=== PATIENT | male | born 1970 | race Caucasian/White ===

== ENCOUNTER → 2018-02-01 02:57 | Outpatient (CLI) | payer OTHER, SELFPAY ==
[2018-02-01 08:23] LABS: Cholesterol 155 mg/dL (50-200); HDL Cholesterol 39 mg/dL (40-60); LDL CHOLESTEROL 105 mg/dL (<100); Triglyceride 83 mg/dL (30-150)
== END ==
PROVIDERS: PCP Nurse Practitioner Family; Visit Provider Student in an Organized Health Care Education/Training Program
DX: Z13.220 Encounter for screening for lipoid disorders (principal)
CPT/HCPCS: 36415; 80061; 83721

== ENCOUNTER 2018-08-16 11:03 | Outpatient (CLI) | payer OTHER, SELFPAY | END 2018-08-16 11:23 | PROVIDERS: PCP Family Medicine; Visit Provider Family Medicine | DX: R00.2 Palpitations (principal); R00.1 Bradycardia, unspecified; I47.1 Supraventricular tachycardia | CPT/HCPCS: 93225 ==

== ENCOUNTER 2018-08-19 09:21 | Outpatient (CLI) | payer OTHER, SELFPAY ==
--- NOTE | 2018-08-20 20:01 | HOLTER_ITS ---
HOLTER REPORT Date of dictation: August 20, 2018 Study Indication: Palpitations. Requesting Provider: Mojgan Thompson M.D. Findings: The patient was monitored for 2 days. The baseline rhythm was sinus rhythm. Average heart rate 52 bpm, range 41-103 bpm. There was rare ectopy, 0.4% PVC's and less than 0.1% PAC's. There was no VT. There were two atrial runs, longest 17 beats, fastest 146 bpm. There was nocturnal bradycardia. There were no pauses greater than 3 seconds. There was no higher degree heart block. There were six patient events; none of these events correlated with arrhythmias. Final Interpretation: Minor arrhythmias, asymptomatic.
== END 2018-08-19 09:41 ==
PROVIDERS: PCP Family Medicine; Visit Provider Family Medicine
DX: R00.2 Palpitations (principal); R00.1 Bradycardia, unspecified; I47.1 Supraventricular tachycardia
CPT/HCPCS: 93226

== ENCOUNTER 2018-09-04 00:41 | Outpatient (CLI) | payer OTHER, SELFPAY ==
--- NOTE | 2018-09-04 08:30 | ETT_ITS ---
*[facility]* *[facility]* [address] [place] [address] Stress Electrocardiography Ricky protocol Date of study: 09/04/2018 *PATIENT PRESENTATION* Height: 185.4cm (73in) Blood Pressure: Weight: 102.3kg (225lb) BSA: 2.32m^2 Referring physician: Mojgan Thomposn Ordering physician: Mojgan Thompson Impressions: Normal study after maximal exercise. Summary: 1. Stress ECG conclusions: The stress ECG is negative. Rob treadmill score: 13. This score predicts a low risk of cardiac events. 2. Stress: The target heart rate was achieved. The heart rate response to stress is normal. There is a normal resting blood pressure with an appropriate response to stress. The patient experienced no chest pain during stress. Exercise capacity is above normal for age. 3. Treadmill exercise testing was performed using the Ricky protocol. The patient exercised for 13 min 15 sec, to protocol stage 4, to a maximal work rate of 14.3mets. Exercise was terminated due to fatigue. Indication: R00.2, Appropriate Use Criteria: A (Appropriate). History: REASON FOR TESTING: PATIENT HAS HAD PALPITATIONS FOR YEARS WHICH HAVE INCREASED IN FREQUENCY OVER THE LAST MONTH. PATIENT REPORTS OCCASIONAL PALPITATIONS IN THE MORNING THAT GETS WORSE AFTER LUNCH AND AFTER DRINKING CAFFINATED BEVERAGES. HE STATES THESE EPISODES CAN LAST UP TO 3 HOURS AT A TIME. HE DENIES CHEST PAIN/PALPITATIONS UPON ARRIVAL FOR TESTING THIS MORNING. SIGNIFICANT PAST MEDICAL HISTORY: HIS BROTHER HAD TRIPLE BYPASS AT AGE 35. ANXIETY. SMOKING STATUS: QUIT 2006. SMOKED FOR 25 YEARS, 1 PPD. EXERCISE ROUTINE: DAILY ADL'S AND MAITNANCE AT WORK. Risk factors: Family history of coronary artery disease. Hypertension. Dyslipidemia. Cholesterol: 155mg/dl. HDL: 39mg/dl. LDL: 105mg/dl. Triglycerides: 83mg/dl. ALLERGIES: NO KNOWN ALLERGIES. MEDICATIONS: ASPIRIN 81 MG DAILY, CLONAZEPAM 0.5 MG BID, FLUOXETINE 60 MG DAILY, OMEPRAZOLE 20 MG DAILY, TAMULOSIN 0.4 MG DAILY, HYDROCHLOROTHIAZIDE DAILY(DOSE UNKNOWN), LISINOPRIL 20 MG DAILY, PREVASTATIN 40 DAILY. Protocol: Ricky protocol. Baseline ECG: SINUS BRADYCARDIA. HR 53 BPM. Sinus bradycardia. Stress protocol: + +---+ + !Stage !HR !BP (mmHg) ! + +---+ + !Baseline supine !53 !118/80 (93) ! + +---+ + !Baseline standing !64 !120/80 (93) ! + +---+ + !Stage I; 1.7mph, 10degrees; 3 min !83 !138/80 (99) ! + +---+ + !Stage II; 2.5mph, 12degrees; 3 min !98 !150/80 (103)! + +---+ + !Stage III; 3.4mph, 14degrees; 3 min!125!160/80 (107)! + +---+ + !Stage IV; 4.2mph, 16degrees; 3 min !150!170/80 (110)! + +---+ + !Peak stress !162! ! + +---+ + !Recovery; 1 min !143!128/60 (83) ! + +---+ + !Recovery; 3 min !83 !130/70 (90) ! + +---+ + !Recovery; 6 min !76 !112/66 (81) ! + +---+ + * Stress results: STRESS TEST ENDED IN 13 MINUTES 15 SECONDS DUE TO FATIGUE. NORMAL HEART RATE AND BLOOD PRESSURE RESPONSE TO EXERCISE. MAX HEART RATE: 162. 94 % OF TARGET HEART RATE ACHIEVED. MET'S: 14.33. OCCASIONAL PVC'S NOTED IN RECOVERY PHASE. NO SIGNIFICANT ST SEGMENT CHANGES. FUNCTIONAL CAPACITY: ABOVE AVERAGE. Maximal heart rate during stress was 162bpm (95% of maximal predicted heart rate). The maximal predicted heart rate was 171bpm. The target heart rate was achieved. The heart rate response to stress is normal. There is a normal resting blood pressure with an appropriate response to stress. The rate-pressure product for the peak heart rate and blood pressure was 24066ae Hg/min. The patient experienced no chest pain during stress. Exercise capacity is above normal for age. Stress ECG: The stress ECG is negative. Rob treadmill score: 13. This score predicts a low risk of cardiac events. Study data: Fuad Bennett MD supervised and was readily available during the procedure. This study was interpreted by [facility]. Study status: Routine. Consent: The risks, benefits, and alternatives to the procedure were explained to the patient and informed consent was obtained. Procedure: Initial setup. A baseline ECG was recorded. Surface ECG leads and manual cuff blood pressure measurements were monitored. Heart sounds: Normal. Lung sounds: Normal. Treadmill exercise testing was performed using the Ricky protocol. The patient exercised for 13 min 15 sec, to protocol stage 4, to a maximal work rate of 14.3mets. Exercise was terminated due to fatigue. Study completion: The patient tolerated the procedure well and was discharged from the lab. Discharge: The patient left the laboratory in stable condition. Birthdate: Patient birthdate: 1970. Sex: Gender: male. Study date: Study date: 09/04/2018. Study time: 00:01 AM. Signature Documentation: The Stress ECG portion of this study was interpreted by Fuad Bennett MD. Electronically signed by Fuad Bennett 09/04/2018 10:08
== END 2018-09-04 01:01 ==
PROVIDERS: PCP Family Medicine; Visit Provider Family Medicine
DX: R00.2 Palpitations (principal); I10 Essential (primary) hypertension; E78.5 Hyperlipidemia, unspecified; Z87.891 Personal history of nicotine dependence; Z82.49 Family history of ischemic heart disease and other diseases of the circulatory system
CPT/HCPCS: 93017

== ENCOUNTER 2018-11-14 16:22 | Outpatient (REF) | payer OTHER, SELFPAY ==
[2018-11-14 18:37] LABS: Anion Gap 10.4 mmol/L (3-11); BUN 23 mg/dL (7-18); CO2 28.6 mmol/L (21.0-32.0); CREATININE 0.86 mg/dL (0.70-1.30); Calcium 9.4 mg/dL (8.5-10.1); Chloride 102 mmol/L (98-107); Glucose 87 mg/dL (70-100); Potassium 3.5 mmol/L (3.5-5.1); Sodium 141 mmol/L (136-145)
== END 2018-11-14 16:42 ==
LOC: NCHCN 16:22
PROVIDERS: PCP Family Medicine; Visit Provider Family Medicine
DX: I10 Essential (primary) hypertension (principal)
CPT/HCPCS: 80048

== ENCOUNTER 2019-02-12 13:24 | Outpatient (CLI) | payer OTHER, SELFPAY ==
--- NOTE | 2019-02-12 13:40 | DI.RAD_ITS ---
SYMPTOMS/DIAGNOSIS: KNEE PAIN, M25.562 LEFT KNEE: The joint spaces are well maintained. There is minimal spurring at the medial femorotibial joint. No joint effusion is seen. IMPRESSION: Minimal degenerative changes.
== END 2019-02-12 13:44 ==
PROVIDERS: PCP Family Medicine; Visit Provider Family Medicine
DX: M25.562 Pain in left knee (principal); M17.12 Unilateral primary osteoarthritis, left knee
CPT/HCPCS: 73562

== ENCOUNTER 2019-11-21 16:32 | Outpatient (REF) | payer OTHER, SELFPAY ==
[2019-11-21 19:12] LABS: HCT 42.9 % (40.0-50.0); HGB 14.3 g/dL (13.5-17.5); Mean Corp. HGB Concentration 33.3 g/dL (32.0-36.0); Mean Corpuscular Hemoglobin 28.8 pg (27.0-33.0); Mean Corpuscular Volume 86.3 fL (80-95); Mean Platelet Volume 12.5 fL (8.0-11.0); Platelet Count 220 x1000/uL (130-400); RBC 4.97 m/cumm (4.50-6.00); RBC Distribution Width 14.7 % (11.8-14.1); White Blood Cell Count 6.23 k/cumm (4.4-10.8)
[2019-11-21 19:17] LABS: Anion Gap 8.8 mmol/L (3-11); BUN 20 mg/dL (7-18); CO2 29.2 mmol/L (21.0-32.0); CREATININE 1.05 mg/dL (0.70-1.30); Calcium 9.1 mg/dL (8.5-10.1); Calculated LDL 124 mg/dL (<100); Chloride 105 mmol/L (98-107); Cholesterol 186 mg/dL (<200); Glucose 87 mg/dL (74-106); HDL Cholesterol 45 mg/dL (40-60); Potassium 3.9 mmol/L (3.5-5.1); Sodium 143 mmol/L (136-145); Triglyceride 88 mg/dL (<150)
[2019-11-21 19:36] LABS: Hemoglobin A1C 5.7 % (3.8-5.6)
== END 2019-11-21 16:52 ==
LOC: NCHCN 16:32
PROVIDERS: PCP Family Medicine; Visit Provider Family Medicine
DX: I10 Essential (primary) hypertension (principal); E78.5 Hyperlipidemia, unspecified
CPT/HCPCS: 80048; 80061; 85027; 83036

== ENCOUNTER 2020-01-23 09:37 | Day surgery (SDC) | payer OTHER, SELFPAY ==
[2020-01-23 10:03] VITALS: BP 129/89; PULSE 56; RESP 16; TEMP 36.4; O2SAT 96
[2020-01-23] MEDS: Lactated Ringers 1,000 ML 80 ML IV (10:23)
--- NOTE | 2020-01-23 11:11 | W.PM.DSUDISC ---
Discharge Plan Disposition Patient Disposition: HOME Condition: Good Discharge Details Reason For Visit: Colonoscopy Attending Provider: Gracie Talamantes Primary Care Provider: Mojgan Thompson Home Meds and New Rx's Prescriptions: Continued pravastatin 40 MG tablet 80 mg PO DAILY Qty: 180 RF: 3 lisinopril 10 MG tablet 10 mg PO DAILY Qty: 30 RF: 11 hydrochlorothiazide 12.5 MG capsule 12.5 mg PO DAILY Qty: 30 RF: 11 omeprazole [Prilosec] 20 MG capsule,delayed release(DR/EC) 20 mg PO DAILY RF: 0 clonazepam 0.5 MG tablet 0.5 mg PO BID RF: 0 fluoxetine [Prozac] 10 MG capsule 10 mg PO DAILY RF: 0 tamsulosin [Flomax] 0.4 MG capsule 0.4 mg PO DAILY RF: 0 aspirin [Aspir-81] 81 MG tablet,delayed release (DR/EC) 81 mg PO DAILY RF: 0 Discharge Instructions Additional Instructions: Findings: Two small polyps were removed. My office will contact you with biopsy results. Follow up: If the biopsy shows adenomatous polyps, you will need a colonoscopy in 5 years. Please call if you develop: fevers >101.5 Nausea or Vomiting Abdominal pain that is not transient DAY SURGERY UNIT POST COLONOSCOPY INSTRUCTIONS 1. Because there will be medication in your system for the next 24 hours, you may feel a little sleepy. Your coordination will be affected. Therefore: a. Do not drive or operate dangerous equipment for 24 hours. b. Do not drink alcohol beverages for 24 hours (not even beer). c. Plan to go home and rest for the day. 2. Generally there are no restrictions on your activity after a day or so has gone by, but you may feel a bit fatigued for a few days. 3 After you arrive home you may have a light meal and return to a normal diet as you can tolerate it without feeling sick to your stomach. 4. After surgery, you may feel pain or discomfort. This should be only transient, but if it persists please contact your doctor. 5. If there are any questions regarding the findings of your procedure, please feel free to contact your doctor. 6. If you are unable to contact your doctor with a problem, contact the hospital at [phone]. 7. Continue all your regular medications unless directed otherwise. I understand the above instructions and have no questions. Signature of Patient or Responsible Adult Escort Date/Time Name of Responsible Adult Escort Signature of Nurse Date/Time Activity:: Activity as Tolerated Diet:: As Tolerated Discharge Orders Discharge Orders: Discharge Order (Routine); Ordered 01/23/20 Ordered By: Gracie Talamantes DS: Diagnosis Discharge Diagnosis (1) Colon polyps: Status: Acute (2) Diverticulosis: Status: Acute
--- NOTE | 2020-01-23 11:14 | W.COLOREPORT ---
Date of service: 01/23/20 Time of Service: 12:02 Colonoscopy Report Date of procedure: 01/23/20 Pre-op diagnosis general: Screening Post-op diagnosis procedure note: other (Colon polyps, Diverticulosis) Procedure: Colonoscopy with cold forceps polypectomy Surgeon: Gracie Talamantes Anesthesia proc note operative: MAC Indications: This 49 year old man presents for his first screening colonoscopy. No symptoms or FH colon cancer. Procedure Description: The patient was placed in the left Yao position. Propofol was titrated to sedation. Digital rectal examination revealed no abnormalities. The scope was advanced to the cecum without difficulty. The ileocecal valve and appendiceal orifice were clearly identified. A few diverticulosis pockets were noted near the appendiceal orifice and were also scattered throughout the colon. The prep was good. The scope was slowly withdrawn over the course of greater than 6 minutes with no abnormalities seen in the ascending, transverse, descending colon. A diminuitive polyp was removed with the cold forceps from the sigmoid colon. It is possible this is an inverted diverticulum. A diminuitive polyp was also removed from the rectum with the cold forceps. It was otherwise normal including on retroflexed view. The patient tolerated the procedure well and was stable to recovery. Plan for routine screening colonoscopy in 5 years if the polyp is adenomatous.
--- NOTE | 2020-01-23 11:50 | BOWEL_PTH ---
PATIENT: Harris Quiroz LOC: [facility] U#:[id number] AGE/SX: 49/M ROOM: RE01/23/[address]: Gracie Talamantes MD : 1970 BED: DIS: 01/23/2020 SPEC #: [id number] RECD: 01/23/20 12:51 STATUS: WAQAS REQ #: [id number] EMMANUEL: 01/23/20 11:[address]: Gracie Talamantes DEPT: Surgical Specimen RECD BY: Krystal Silva ENTERED: 01/23/20 12:53 SP TYPE: Bowel OTHR DR: Mojgan Thompson Tissues: 1 - BIOPSY BOWEL 2 - BIOPSY BOWEL Procedures: GROSS AND MICRO LEVEL 4 Comments: [id number]
[2020-01-23 12:20] VITALS: BP 113/57; PULSE 49; RESP 16; TEMP 36.6; O2SAT 96
[2020-01-23 12:29] VITALS: BP 116/74; PULSE 49; RESP 16; TEMP 36.4; O2SAT 96
== END 2020-01-23 12:48 | disposition home or self-care (01) ==
PROVIDERS: PCP Family Medicine; Visit Provider Surgery
PROC: 0DJD8ZZ Inspection of Lower Intestinal Tract, Via Natural or Artificial Opening Endoscopic (ICD-10-PCS; CPT 45378; principal; 2020-01-23 11:15)
DX: Z12.11 Encounter for screening for malignant neoplasm of colon (principal); K63.5 Polyp of colon; K62.1 Rectal polyp; K57.30 Diverticulosis of large intestine without perforation or abscess without bleeding; K21.9 Gastro-esophageal reflux disease without esophagitis
CPT/HCPCS: 45380; 88305

== ENCOUNTER 2020-05-10 21:22 | Outpatient (REF) | payer OTHER, SELFPAY ==
[2020-05-12 05:28] LABS: Patient Race White; SARS-CoV-2 RNA Undetected (Undetected); SARS-CoV-2 Specimen Source Nasal
== END 2020-05-10 21:42 ==
LOC: NCHCN 21:22
PROVIDERS: PCP Family Medicine; Visit Provider Nurse Practitioner Family
DX: Z20.828 Contact with and (suspected) exposure to other viral communicable diseases (principal)
CPT/HCPCS: U0003

== ENCOUNTER 2020-09-10 09:32 | Outpatient (CLI) | payer OTHER, SELFPAY ==
--- NOTE | 2020-09-10 11:10 | DI.RAD_ITS ---
EXAM: XR ELBOW RT COMPLETE CLINICAL HISTORY: ELBOW JOINT PAIN RT M25.521 TECHNIQUE: COMPARISON: No exams were available for comparison FINDINGS: Three views were obtained. There is no evidence of an elbow joint effusion or hemarthrosis. Bones a ppear intact, a couple of tiny flecks of calcific material are projected over the central portion of the joint on the AP views. IMPRESSION: Essentially negative examination of the elbow. RADIATION DOSE DELIVERED: Total DLP
== END 2020-09-10 09:52 ==
PROVIDERS: PCP Family Medicine; Visit Provider Family Medicine
DX: M25.521 Pain in right elbow (principal)
CPT/HCPCS: 73080

== ENCOUNTER 2020-11-22 19:04 | Outpatient (REF) | payer OTHER, SELFPAY ==
[2020-11-22 19:45] LABS: ALT 57 U/L (16-63); AST 28 U/L (15-37); Alkaline Phosphatase 81 U/L (46-116); Anion Gap 8.6 mmol/L (3-11); BUN 22 mg/dL (7-18); Bilirubin, Total 0.2 mg/dL (0.2-1.0); CO2 29.4 mmol/L (21.0-32.0); CREATININE 0.9 mg/dL (0.70-1.30); Calcium 8.9 mg/dL (8.5-10.1); Chloride 104 mmol/L (98-107); Glucose 101 mg/dL (74-106); Potassium 3.5 mmol/L (3.5-5.1); Sodium 142 mmol/L (136-145); Total Protein 6.9 g/dL (6.4-8.2)
[2020-11-22 20:27] LABS: Hemoglobin A1C 5.6 % (<5.7)
== END 2020-11-22 19:05 | disposition home or self-care (01) ==
LOC: NCHCN 19:04
PROVIDERS: PCP Family Medicine; Visit Provider Family Medicine
DX: I10 Essential (primary) hypertension (principal); R73.03 Prediabetes
CPT/HCPCS: 80053; 83036

== ENCOUNTER 2020-12-16 14:47 | Outpatient (REF) | payer OTHER, SELFPAY ==
[2020-12-16 17:47] LABS: PSA, Screening 0.5 ng/mL (0.0-3.5)
== END 2020-12-16 14:48 | disposition home or self-care (01) ==
LOC: LBN 14:47
PROVIDERS: PCP Family Medicine; Visit Provider Urology
DX: Z12.5 Encounter for screening for malignant neoplasm of prostate (principal); Z80.42 Family history of malignant neoplasm of prostate
CPT/HCPCS: 84153

== ENCOUNTER 2021-12-28 18:06 | Outpatient (REF) | payer OTHER, SELFPAY ==
[2021-12-28 19:08] LABS: Anion Gap 10.2 mmol/L (3-11); BUN 12 mg/dL (7-18); CO2 28.8 mmol/L (21.0-32.0); Calcium 8.9 mg/dL (8.5-10.1); Calculated LDL 121 mg/dL (<100); Chloride 100 mmol/L (98-107); Cholesterol 177 mg/dL (<200); Glucose 90 mg/dL (74-106); HDL Cholesterol 40 mg/dL (40-60); Potassium 3.3 mmol/L (3.5-5.1); Sodium 139 mmol/L (136-145); Triglyceride 84 mg/dL (<150)
[2021-12-28 19:53] LABS: Hemoglobin A1C 5.8 % (<5.7)
== END 2021-12-28 18:07 | disposition home or self-care (01) ==
LOC: NCHCN 18:06
PROVIDERS: PCP Family Medicine; Visit Provider Family Medicine
DX: I10 Essential (primary) hypertension (principal); E78.5 Hyperlipidemia, unspecified; R73.03 Prediabetes
CPT/HCPCS: 80048; 80061; 83036

== ENCOUNTER 2023-01-12 15:58 | Outpatient (REF) | payer OTHER, SELFPAY ==
[2023-01-12 16:53] LABS: Anion Gap 5.5 mmol/L (3-11); BUN 15 mg/dL (7-18); CO2 31.5 mmol/L (21.0-32.0); CREATININE 1.1 mg/dL (0.70-1.30); Calcium 9.2 mg/dL (8.5-10.1); Chloride 102 mmol/L (98-107); Estimated GFR 80.27 (mL/min/1.73m2); Glucose 96 mg/dL (74-106); Potassium 3.8 mmol/L (3.5-5.1); Sodium 139 mmol/L (136-145)
[2023-01-12 17:56] LABS: Hemoglobin A1C 5.7 % (<5.7)
== END 2023-01-12 15:59 | disposition home or self-care (01) ==
LOC: NCHCN 15:58
PROVIDERS: PCP Family Medicine; Visit Provider Family Medicine
DX: I10 Essential (primary) hypertension (principal); R73.03 Prediabetes
CPT/HCPCS: 80048; 83036

== ENCOUNTER 2023-09-24 17:37 | Outpatient (CLI) | payer OTHER, SELFPAY ==
[2023-09-25 08:19] LABS: PSA, Screening 0.5 ng/mL (<=3.5)
== END 2023-09-24 17:38 | disposition home or self-care (01) ==
LOC: LBO 17:37
PROVIDERS: PCP Family Medicine; Visit Provider Nurse Practitioner Gerontology
DX: R39.89 Other symptoms and signs involving the genitourinary system (principal); Z12.5 Encounter for screening for malignant neoplasm of prostate
CPT/HCPCS: 36415; 84153

== ENCOUNTER 2024-03-20 13:07 | Outpatient (CLI) | payer OTHER, SELFPAY ==
[2024-03-20 11:15] LABS: Hemoglobin A1C 5.5 % (<5.7)
[2024-03-20 11:19] LABS: ALT 47 U/L (16-63); AST 31 U/L (15-37); Albumin 4.1 g/dL (3.4-5.0); Alkaline Phosphatase 84 U/L (46-116); Anion Gap 6.1 mmol/L (3-11); BUN 15 mg/dL (7-18); Bilirubin, Total 0.68 mg/dL (0.2-1.0); CO2 30.9 mmol/L (21.0-32.0); CREATININE 0.9 mg/dL (0.70-1.30); Calcium 9.2 mg/dL (8.5-10.1); Calculated LDL 121 mg/dL (<100); Chloride 105 mmol/L (98-107); Cholesterol 190 mg/dL (<200); Estimated GFR 101.49 (mL/min/1.73m2); Glucose 99 mg/dL (74-106); HDL Cholesterol 44 mg/dL (40-60); Potassium 3.8 mmol/L (3.5-5.1); Sodium 142 mmol/L (136-145); Total Protein 7.3 g/dL (6.4-8.2); Triglyceride 125 mg/dL (<150)
== END 2024-03-20 13:08 | disposition home or self-care (01) ==
LOC: LBO 13:07
PROVIDERS: PCP Family Medicine; Visit Provider Family Medicine
DX: I10 Essential (primary) hypertension (principal); E78.5 Hyperlipidemia, unspecified
CPT/HCPCS: 36415; 80053; 80061; 83036

== ENCOUNTER 2024-06-20 19:07 | Outpatient (REF) | payer OTHER, SELFPAY ==
--- OUTSIDE RECORDS SUMMARY | 2024-06-20 19:12 | XMS_ITS | Encounter Summary ---
Author Organization [facility] Address [address] [place] [address] Care Team Providers Care Contractor General Building Name Role Phone Jm, Kartik Ziegler DO Primary Care Provider [phone]- [phone] Encounter Details Date Type Department Care Team (Late st Contact Info) Description 06/17/2003 Results Only [facility] [address] [place] [address] Angela Humphries, CRIMINAL INTELLIGENCE SPECIALIST [address] [place] [id number] Social History Tobacco Use Types Packs/Day Years Used Date Smoking Tobacco: Never Assessed Sex and Gender Information Value Date Recorded Sex Assigned at Not on file Legal Sex Male 18:22 EST Gender Identity Not on file Sexual Orientation Not on file documented as of this encounter Plan of Treatment Not on file documented as of this encounter Procedures Procedure Name Priority Date/Time Associated Diagnosis Comments SURGICAL PATHOLOGY Routine 06/17/2003 0:00 EST documented in this encounter Results * SURGICAL PATHOLOGY (06/17/2003 0:00 EST) Pathology Report: SURGICAL PATHOLOGY REPORT Reports generated via electronic interface contain original data; however they are lacking the format of the original report. Caution should be taken when reading/interpreti ng unformatted reports. Name: ? STEPHANIE QUIROZWN Chayo ? Accession #: ? [id number] ? : ? 1970 (Age: 33) ??M ? Collect Date: ? 06/17/2003 ? Location: ? [facility] ? Receive Date: ? 06/18/2003 ? Provider: ANGELA HUMPHRIES NP Copy to: KARTIK ONEAL DO ? Final Pathologic Diagnosis: ? Skin of neck, right, shave biopsy: - Melanocytic nevus, compound type. Document reviewed and electronically signed by: Charlie Rodriguez MD Report ??Date: 06/19/2003 17:33 By the signature above, the attending physician certifies that he/she has personally conducted a gross and/or microscopic examination of the described specimens and rendered or confirmed the above diagnosis. Specimen(s) Received: ? Skin tag R side neck Clinical History: ? Not listed Gross Description: ? Received in formalin labelled Locklin and skin tag R side neck is a wrinkled cordero polyp measuring 0.4 x 0.3 x 0.3 cm. ??The resection stalk is black inked. ??The specimen is bisected and submitted entirely as one cassette. ?? (Dr. Calabrese)/brian End of Report SEEMA FRANCIS 06/17/2003 06/18/2003 15: 21 EST us Angela Humphries NP PATHOLOGY ORDERABLES Final R esult SEEMA FRANCIS [address] [place] [address] documented in this encounter Visit Diagnoses Not on filedocumented in this encounter Care Teams Contractor General Building Relationship Specialty Start Date End Date Kartik Oneal DO [address] [place] [address] [place] [address] PCP - General 06/21/09 01/21/20 documented as of this encounter
--- OUTSIDE RECORDS SUMMARY | 2024-06-20 19:12 | XMS_ITS | Encounter Summary ---
Author Organization [facility] Address [facility] [place] [address] Care Team Providers Care Ergonomic Specialist Name Role Phone Clifton Russell APRN Primary Care Provider [phone]- [phone] Reason for Visit * Reason Comments Follow-up canthoplasty for , finalize surgery Encounter Details Date Type Department Care Team (Late st Contact Info) Description 06/03/2014 2:00 PM EST [place] [address] Jared Arboleda MD [facility] [place] [address] Ectropion of eyelid, right; Superficial trauma of eyelid, right, subsequent encounter Discharge Disposition: Home Social History Tobacco Use Types Packs/Day Years Used Date Smoking Tobacco: Never Smokeless Tobacco: Current Chew Alcohol Use Standard Drinks/Week Comments Yes 0 (1 standard drink = 0.6 oz pure alcohol) Notes infrequent but will drink to excess when he does Sex and Gender Information Value Date Recorded Sex Assigned at Not on file Gender Identity Not on file Sexual Orientation Not on file documented as of this encounter Last Filed Vital Signs Vital Sign Reading Time Taken Comments Blood Pressure 136/74 06/03/2014 1:49 PM EST Pulse 61 06/03/2014 1:49 PM EST Temperature - - Respiratory Rate - - Oxygen Saturation - - Inhaled Oxygen Concentration - - Weight 103.3 kg (227 lb 12.8 oz) 06/03/2014 1:49 PM EST Height 185.4 cm (6' 1) 06/03/2014 1:49 PM EST Body Mass Index 30.05 06/03/2014 1:49 PM EST documented in this encounter Progress Notes * Jared Arboleda MD - 06/03/2014 1:42 PM EST Plastic Surgery Follow Up Note Jared Arboleda MD PCP: CLIFTON RUSSELL APRN CC: Right lower lid ectropion. HPI: Harris Quiroz returns in follow up for right lower lid ectropion. He is scheduled for a canthoplasty on 06/09/14. He reports that he has continued massaging the area as directed since his lastvisit. He also reports that the suture that was placed last week popped out since that visit. Examination: There were no vitals taken for this visit. Constitutional: No acute distress HEENT: Normocephalic, extra ocular movement intact Still incompletley closing the right eye No injection of conjunctiva Lower Lid is sitting 4 mm away from globe on the right Impression: Harrisjackelin Quiroz 43 y.o. male patient s/p right lower lid laceration repair with ectropion of right lower lid. Based on the physical examination, I advised him that I need to proceed with the planned canthoplasty to correct the lid position to avoid dry eye syndrome. I again discussed potential risks and complications which include but are not limited to: pain, bleeding, infection, scarring, asymmetry, hematoma, seroma, ectropion, entropion, permanent or temporary numbness, damage tothe eye and other structures, poor cosmetic outcome, failure of procedure and the possible need forrevision. He agrees and wishes to proceed. In the meantime I advised him to continue massaging the area. Photos taken today with informed signed consent Plan: 1. Proceed with planned procedure IPerri, am acting as scribe for Dr Arboleda. All work documented was performed by Dr Arboleda. ???I performed the above scribed service and agree with the accuracy of the note?? Jared Arboleda MD documented in this encounter Plan of Treatment Not on file documented as of this encounter Visit Diagnoses Diagnosis Ectropion of eyelid, right Superficial trauma of eyelid, right, subsequent encounter documented in this encounter Care Teams Ergonomic Specialist Relationship Specialty Start Date End Date Clifton Russell APRN PCP - General 05/03/10 08/06/16 documented as of this encounter
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
--- OUTSIDE RECORDS SUMMARY | 2024-06-20 19:12 | XMS_ITS | Encounter Summary ---
Author Organization [facility] Address [address] [place] [address] Care Team Providers Care Qa Intern Name Role Phone Mojgan Thompson MD Primary Care Provider [phone] Encounter Details Date Type Department Care Team (Late st Contact Info) Description 12/16/2020 Lab Requisition [facility] Pathology & Laboratory Medicine - [address] [address] Outr Resulting Lab, Provider Social History Tobacco Use Types Packs/Day Years Used Date Smoking Tobacco: Never Assessed Interpersonal Safety Answer Date Record ed Physically Hurt Never 01/29/2020 Verbally Threaten Not on file 01/29/2020 Sex and Gender Information Value Date Recorded Sex Assigned at Not on file Legal Sex Male 18:22 EST Gender Identity Not on file Sexual Orientation Not on file documented as of this encounter Plan of Treatment Not on file documented as of this encounter Procedures Procedure Name Priority Date/Time Associated Diagnosis Comments PSA TOTAL, DIAGNOSTIC Routine 12/16/2020 11:15 EDT documented in this encounter Results * PSA TOTAL, DIAGNOSTIC (12/16/2020 11:15 EDT) PSA 0.5 0.0 - 3.5 ng/mL 12/16/2020 17:42 EDT [facility] Blood VENOUS BLOOD / Unknown 12/16/2020 11:15 EDT 12/16/2020 15:48 EDT Narrative [facility] - 12/16/2020 17:42 EDT NOTE: Serum PSA concentration should not be interpreted as absolute evidence for the presence or absence of malignant disease. Assayed on Siemens ADVIA PagoFacilaur XPT using chemiluminescent technology.??Values obtained by using different assay methods cannot be used interchangeably. us Provider Outr Resulting Lab CHEMISTRY & BLOOD GA S ORDERABLES Final Result [facility] [address] [place] [address] documented in this encounter Visit Diagnoses Not on filedocumented in this encounter Care Teams Qa Intern Relationship Specialty Start Date End Date Mojgan Thompson MD [address] [place] [phone] PCP - General 01/22/20 documented as of this encounter
--- OUTSIDE RECORDS SUMMARY | 2024-06-20 19:12 | XMS_ITS | Encounter Summary ---
Author Organization [facility] Address [facility] [place] [address] Care Team Providers Care Friend Of The Court Name Role Phone Clifton Bowman APRN Primary Care Provider [phone] Reason for Visit * Reason Comments Follow-up right eye suture Encounter Details Date Type Department Care Team (Late st Contact Info) Description 05/14/2014 2:30 PM EST [place] [address] Jared Melara MD [facility] [place] [address] Superficial trauma of eyelid; Ectropion of eyelid, right Discharge Disposition: Home Social History Tobacco Use [...] on file documented as of this encounter Patient Instructions * Patient Instructions* Mercedez Ornelas RN - 05/14/2014 2:18 PM EST You were given written and verbal preoperative instructions today. To prepare for your upcoming surgery, please review the Pre-Operative Instruction brochure that youwere given at today's appointment. Feel free to call our office [phone] if you have any questions or concerns. We monitor the phones from 8-5 Sunday through Sunday. documented in this encounter Progress Notes * Mercedez Ornelas RN - 05/14/2014 2:18 PM EST Pre-Op Teaching for Surgery Surgery: right canthoplasty Written and verbal pre-operative instructions were given and reviewed with patient: Patient was advised to discontinue use of NSAIDS and aspirin products (unless otherwise advised by patient's PCP/Elevator Pilot for cardiac symptoms), fish oil, Vitamin E and herbal supplements for 14 days prior to surgery, to perform the pre-op scrub, and to coordinate a ride home following surgery. Smoking status and medications were further reviewed to rule out/address current use of Nicotine, Coumadin, Plavix, Estrogen or Tamoxifen. Photos were taken Patient was instructed to call the clinic at with any questions or concerns prior tosurgery. * Jared Melara MD - 05/14/2014 2:07 PM EST Plastic Surgery Follow Up Note CLIFTON BOWMAN APRN CC: Right lower lid ectropion. HPI: Harrismeir Morelandestephania returns in follow up for right lower lid ectropion. He reports that his eye feels better. He is engaging in massage. Examination: There were no vitals taken for this visit. Constitutional: No acute distress HEENT: Normocephalic, extra ocular movement intact Still completley closing Tarsorrhaphy suture remains in place No injection of conjunctiva Lid is sitting 4 mm away from globe Impression: Harris Quiroz 43 y.o. male patient s/p right lower lid laceration repair with ectropion of right lower lid. I advised that he will require surgical correction of his lid position. I would like for the suture to remain in place for another 2 weeks. Plan: 1. Follow up 2 weeks 2. Schedule for canthoplasty Surgeon: Jared Melara Duration: 90 mins Timeframe: Late May Coordinated with: none Procedure: Canthoplasty CPT: 45684 Surgical site: lid Side: right Anesthesia: General Follow up: 7 Days PAT: No I, Mabel Oglesby, am acting as scribe for Dr Melara. All work documented was performed by Dr Melara. ???I performed the above scribed service and agree with the accuracy of the note?? JARED MELARA MD. documented in this encounter Plan of Treatment Not on file documented as of this encounter Procedures Procedure Name Priority Date/Time Associated Diagnosis Comments CANTHOPLASTY Routine 05/14/2014 2:26 PM EST documented in this encounter Visit Diagnoses Diagnosis Superficial trauma of eyelid Ectropion of eyelid, right documented in this encounter Care Teams Friend Of The Court Relationship Specialty Start Date End Date Clifton Bowman, RUMA PCP - General 05/03/10 08/06/16 documented as of this encounter
--- OUTSIDE RECORDS SUMMARY | 2024-06-20 19:12 | XMS_ITS | Encounter Summary ---
Author Organization [facility] [place] [address] Care Team Providers Care Raised Printer Name Role Phone Hawa Russell APRN Primary Care Provider [phone] Encounter Details Date Type Department Care Team (Late st Contact Info) Description 06/08/2014 Telephone [place] [phone] Franck Boogie Social History Tobacco Use Types Packs/Day Years [...] on file documented as of this encounter Miscellaneous Notes * Telephone Encounter - Franck Boogie - 06/08/2014 2:45 PM EST Left message for patient to call back. Per Dr. Luo request, need to move surgery from 06/09 at the [facility] to 06/10 @ the [facility]. Notified Same day of the date changes. documented in this encounter Plan of Treatment Not on file documented as of this encounter Visit Diagnoses Not on filedocumented in this encounter Care Teams Raised Printer Relationship Specialty Start Date End Date Hawa Russell APRN PCP - General 05/03/10 08/06/16 documented as of this encounter
--- OUTSIDE RECORDS SUMMARY | 2024-06-20 19:12 | XMS_ITS | Encounter Summary ---
Author Organization [facility] Address [address] [place] [address] Care Team Providers Care Panel Raiser Operator Name Role Phone Mojgan Thompson MD Primary Care Provider [phone] Encounter Details Date Type Department Care Team (Late st Contact Info) Description 01/23/2020 Lab Requisition [facility] Pathology & Laboratory Medicine - [address] [address] Gracie Talamantes MD [address] [place], [place] [phone] Encounter for screening for malignant neoplasm of colon Social History Tobacco Use Types Packs/Day Years [...] Priority Date/Time Associated Diagnosis Comments SURGICAL PATHOLOGY Today 01/23/2020 11 :50 EDT Encounter for screening for malignant neoplasm of colon documented in this encounter Results * SURGICAL PATHOLOGY (01/23/2020 11:50 EDT) Final Diagnosis A. COLON, SIGMOID, POLYP, BIOPSY: - Hyperplastic polyp. B. RECTUM, POLYP, BIOPSY: - Hyperplastic polyp. 01/26/2020 17:20 [facility] Attestation By the signature below, the attending physician certifies that they have 1) personally conducted a gross and/or microscopic examination of the described specimen(s), and/or personally interpreted the results of laboratory testing of the described specimen(s), and 2) personally rendered or confirmed the above diagnosis. 01/26/2020 17:20 [facility] at 1720 Clinical History Polyp, screening 01/26/2020 17:20 [facility] Gross Description A. Received in formalin labelled with proper patient identification (initials L, S) and sigmoid polyp are 2 cordero-pink tissues (0.3 x 0.3 x 0.2 cm and 0.3 x 0.2 x 0.2 cm). Submitted entirely in A1. B. Received in formalin labelled with proper patient identification (initials L, S) and rectal polyp is a single cordero-pink tissue (0.5 x 0.3 x 0.2 cm). Submitted entirely in B1. Sam Mortensen 01/23/2020 17:39 01/26/2020 17:20 [facility] Performing Lab [facility] 01/26/2020 17:20 [facility] Scanned Images 01/26/2020 17:20 [facility] Tissue SPECIMEN FROM RECTUM / Unknown 01/23/2020 11:50 EDT 01/23/2020 16:00 EDT Tissue specimen (specimen) SPECIMEN FROM RECTUM / Unknown 01/23/2020 11:50 EDT 01/23/2020 16:00 EDT us Gracie Talamantes MD PATHOLOGY ORDERABLES Final Resul t [facility] [address] [place] [address] documented in this encounter Visit Diagnoses Diagnosis Encounter for screening for malignant neoplasm of colon Special screening for malignant neoplasms, colon documented in this encounter Care Teams Panel Raiser Operator Relationship Specialty Start Date End Date Mojgan Thompson MD [address] [place] [phone] PCP - General 01/22/20 documented as of this encounter
--- OUTSIDE RECORDS SUMMARY | 2024-06-20 19:12 | XMS_ITS | Encounter Summary ---
Author Organization [facility] Address [address] [place] [address] Care Team Providers Care Heel Seam Rubber Name Role Phone Mojgan Thompson MD Primary Care Provider [phone] Encounter Details Date Type Department Care Team (Late st Contact Info) Description 09/24/2023 Lab Requisition [facility] Pathology & Laboratory Medicine - [address] [address] Outr Resulting Lab, Provider Social History Tobacco [...] Associated Diagnosis Comments PSA TOTAL, DIAGNOSTIC Routine 09/24/2023 13:40 EDT documented in this encounter Results * PSA TOTAL, DIAGNOSTIC (09/24/2023 13:40 EDT) PSA 0.5 <=3.5 ng/mL 09/25/2023 8:14 EDT [facility] Blood VENOUS BLOOD / Unknown 09/24/2023 13:40 EDT 09/24/2023 21:39 EDT Narrative [facility] - 09/25/2023 8:14 EDT NOTE: Serum PSA concentration should not be interpreted as absolute evidence for the presence or absence of malignant disease. Assayed on Siemens ADVIA DataCoupaur XPT using chemiluminescent technology.??Values obtained by using different assay methods cannot be used interchangeably. us Provider Outr Resulting Lab CHEMISTRY & BLOOD GA S ORDERABLES Final Result [facility] [address] [place] [address] documented in this encounter Visit Diagnoses Not on filedocumented in this encounter Care Teams Heel Seam Rubber Relationship Specialty Start Date End Date Mojgan Thompson MD [address] [place] [phone] PCP - General 01/22/20 documented as of this encounter
--- OUTSIDE RECORDS SUMMARY | 2024-06-20 19:12 | XMS_ITS | Encounter Summary ---
Author Organization [facility] [place] [address] Care Team Providers Care Shredding Machine Operator Name Role Phone Hawa Russell APRN Primary Care Provider [phone] Encounter Details Date Type Department Care Team (Latest Contact Info) Description 06/10/2014 12:35 PM EST - 06/10/2014 4:04 PM EST Hospital Encounter [place] [phone] Jared Melara MD [facility] [place] [address] Discharge Disposition: Home Social History Tobacco Use [...] 184.2 cm (6' 0.52) 06/10/2014 12:44 PM Adam DUNCAN Body Mass Index 30.75 06/10/2014 12:44 PM [...] closest emergency room or call the hospital blueprint machine operator at [phone] and ask for physician multifocal button generator covering for your physician. Questions or problems after 5pm or on a weekend: Call the [facility] blueprint machine operator at and ask for the physician multifocal button generator covering for your doctor. * Patient Instructions* [...] Sunday 8 am to 5 pm Call [phone] On weekends or after hours: Call [phone] and ask the blueprint machine operator to page the Plastic Surgeon multifocal button generator. documented in this encounter Medications at Time [...] Melara MD - 06/10/2014 3:15 PM EST [facility] Operative Note Patient Name: Harris Quiroz : [id number] MR#: [id number] Case Date: 06/10/2014 Surgeon: Surgeon(s) and Role: [...] Operative Note Patient Name: Harris Quiroz : [id number] MR#: [id number] Case Date: 06/10/2014 Surgeon: Surgeon(s) and Role: [...] MAR Action Action Date Dose Rate Site lactated ringers infusion 1,000 mL 1,000 mL, at 100 mL/hr, Intravenous, CONTINUOUS, Starting on Sun06/10/14 at 1315, Until Sun06/10/14 at 1811, Day of Surgery (Day of Procedure) New Bag 06/10/2014 1:00 PM EST 1,000 mLs 100 mL/hr documented in this encounter Active and Recently [...] prep.) documented in this encounter Care Teams Shredding Machine Operator Relationship Specialty Start Date End Date Hawa Russell APRN PCP - General 05/03/10 08/06/16 documented as of this encounter
--- OUTSIDE RECORDS SUMMARY | 2024-06-20 19:12 | XMS_ITS | Encounter Summary ---
Author Organization [facility] [place] [address] Care Team Providers Care Pm Technician Name Role Phone Clifton Bowman APRN Primary Care Provider [phone] Reason for Visit * Reason Comments Advice Only right lateral scar Encounter Details Date Type Department Care Team (Late st Contact Info) Description 05/04/2014 2:35 PM EST Office [place] [phone] Jared Melara MD [facility] [place] [address] Superficial trauma of eyelid; Ectropion of eyelid, right Discharge Disposition: Home Social History Tobacco Use Types Packs/Day Years Used Date Smoking Tobacco: Never Smokeless Tobacco: Current Chew Tobacco Cessation:Ready to Q uit: No; Counseling Given: Yes Alcohol Use Standard Drinks/Week Comments Yes 0 [...] Sign Reading Time Taken Comments Blood Pressure 145/82 05/04/2014 3:01 PM EST Pulse 53 05/04/2014 3:01 PM EST Temperature - - Respiratory Rate - - Oxygen Saturation - - Inhaled Oxygen Concentration - - Weight 104.3 kg (230 lb) 05/04/2014 3:01 PM EST Height 185.4 cm (6' 1) 05/04/2014 3:01 PM EST Body Mass Index 30.34 05/04/2014 3:01 PM EST documented in this encounter Patient Instructions * Patient Instructions* Mercedez Ornelas RN - 05/04/2014 3:57 PM EST Follow rule of 10's as instructed. Leave stitch in place for [address] Melara in 2 weeks. documented in this encounter Progress Notes * Jared Melara MD - 05/04/2014 2:32 PM EST Plastic Surgery Consultation Note CLIFTON BOWMAN APRN CC: Facial laceration HPI: Harris Quiroz is a 43 y.o. male here in consultation at the request of CLIFTON BOWMAN APRN in follow up after sustaining a laceration to his right lower lid. He is unaccompanied for today'svisit. He sustained the injury on 04/11/14 after falling and hitting his head on a concrete pillar. He reported to a local ED where his laceration was repaired. Films were not taken. He was dischargedand returned to the ED for suture removal 5 days later. His PCP has concerns relating to exposure of his conjunctiva and persistent charli-orbital swelling. He reports that his lid has remained pulled down since the injury. He denies diplopia or blurry vision. He denies numbness in his face. Past Medical History Diagnosis Date ??? Anxiety ??? Depression ??? ETOH abuse ??? BPH (benign prostatic hyperplasia) No past surgical history on file. History Social History ??? Marital Status: Spouse Name: N/A Number of Children: N/A ??? 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 Smoking status: Never Smoker ??? Smokeless tobacco: Current User Types: Chew ??? Alcohol Use: Yes Comment: Notes infrequent but will drink to excess when he does ??? Drug Use: No ??? Sexual Activity: Not on file Other Topics Concern ??? Not on file Social History Narrative No Known Allergies No current outpatient prescriptions on file prior to visit. No current facility-administered medications on file prior to visit. ROS: GI, /Renal, Card, Pulm, Endo, Heme, Immun, Neuro: negative Psych: Depression & Anxiety Examination: BP 145/82 Pulse 53 Ht 185.4 cm (6' 1) Wt 104.327 kg (230 lb) BMI 30.35 kg/m2 Constitutional: No acute distress HEENT: Normocephalic, extra ocular movement intact Moderate swelling at lateral orbital rim, no palpable step-offs, no bony deformity on palpation of the prbital rim Globe position appears normal, no enophthalmos or vertical dystopia Lateral aspect of lid is pulled away from globe Healing scar on right side at lateral canthus Able to fully close eyes and good bells phenomenon. 2 cm laceration lateral to canthus that extends to right lower lid No conjunctiva injection Pulm: symmetric excursion, unlabored, no audible wheeze Cor: pulse regular Abd: soft, non-tender, non-distended Musculoskel: gross full ROM x 4 extrem Skin: no rashes or skin breakdown noted Neuro: motor and sensory exam grossly normal, PERRLA, facial movement symmetric Impression: Harris Quiroz 43 y.o. male patient s/p right lower lid laceration repair with ectropion of right lower lid. We discussed that the position of his lid could be related to the location ofthe injury, or the way his laceration was repaired. We discussed options for treatment focusing on massage and surgical revision. I recommended he proceed with conservative treatment initially, furthe r surgical intervention at this time may result in further complications. I attempted to tape his lid today, his lid position would not hold so I recommended securing his lid with a tarsorrhaphy suture. We discussed massage techniques. I will follow him closely over the next few weeks to assess his progress, if his lid continues to be pulled away he may require surgical revision. I discussed the importance of keeping his globe lubricated to prevent dry eye. Procedure: Under sterile conditions in the office today, following an injection of local anesthesiawith epi, the right lower lid was secured with a tarsorraphy suture 5-0 prolene suture. Plan: 1. Follow up 2 weeks 2. Keep steri-strips in place until next visit 3. I, Mabel Oglesby, am acting as scribe for Dr Melara. All work documented was performed by Dr Melara. ???I performed the above scribed service and agree with the accuracy of the note?? JARED MELARA MD. documented in this encounter Plan of Treatment Not on file documented as of this encounter Visit Diagnoses Diagnosis Superficial trauma of eyelid Ectropion of eyelid, right documented in this encounter Care Teams Pm Technician Relationship Specialty Start Date End Date Clifton Bowman APRN PCP - General 05/03/10 08/06/16 documented as of this encounter
--- OUTSIDE RECORDS SUMMARY | 2024-06-20 19:12 | XMS_ITS | Clinical Summary ---
Author Organization [facility] Address [address] [place] [address] Care Team Providers Care Television Analyzer Name Role Phone Mojgan Thompson MD Primary Care Provider [phone] Social History Tobacco Use Types Packs/Day Years Used Date Smoking Tobacco: Never Assessed Interpersonal Safety Answer Date Record ed Physically Hurt Never 01/29/2020 Verbally Threaten Not on file 01/29/2020 Sex and Gender Information Value Date Recorded Sex Assigned at Not on file Legal Sex Male 18:22 EST Gender Identity Not on file Sexual Orientation Not on file Plan of Treatment Health Maintenance Due Date Last Done Comments Hepatitis C Screen 1969 Hepatitis B Vaccine (1 of 3 - 19+ 3-dose series) 06/07 COVID-19 Vaccine ( season) 2024 Care Teams Television Analyzer Relationship Specialty Start Date End Date Mojgan Thompson MD [address] [place] [phone] PCP - General 01/22/20
--- OUTSIDE RECORDS SUMMARY | 2024-06-20 19:12 | XMS_ITS | Encounter Summary ---
Author Organization [facility] Address [facility] [place] [address] Care Team Providers Care Coldfusion Name Role Phone Hawa Russell APRN Primary Care Provider [phone] Reason for Visit * Reason Comments Follow Up Surgery f/u canthoplasty Encounter Details Date Type Department Care Team (Late st Contact Info) Description 06/19/2014 9:30 AM EST Office [place] [phone] Melinda Pulliam APRN [facility] [place] [address] Ectropion of eyelid, right Discharge Disposition: Home [...] Sign Reading Time Taken Comments Blood Pressure 151/80 06/19/2014 9:37 AM EST Pulse 66 06/19/2014 9:37 AM EST Temperature - - Respiratory Rate - - Oxygen Saturation - - Inhaled Oxygen Concentration - - Weight 104.3 kg (230 lb) 06/19/2014 9:37 AM EST Height 185.4 cm (6' 1) 06/19/2014 9:37 AM EST Body Mass Index 30.34 06/19/2014 9:37 AM EST documented in this encounter Patient Instructions * Patient Instructions* Melinda Pulliam APRN - 06/19/2014 9:48 AM EST Plan: 1. Follow up with Dr. Arboleda in 1 month or sooner if needed 2. Resume eyelid massages as previous doing 3. No activity restrictions Please call our office if you have any questions or concerns. The nurses line: [phone] Sunday through Sunday 8 - 5 The secretaries line: [phone] For emergencies at night or on the weekend: Call the [facility] number [phone] and ask for the Plastic Surgeon incident response specialist. documented in this encounter Progress Notes * Melinda Pulliam APRN - 06/19/2014 9:35 AM EST Plastic Surgery Post Op Note Melinda Pulliam APRN Reason for visit: F/U status post procedure Date of surgery: 06/10/14 Procedure(s): Right sided canthoplasty Complications: None reported Pain: 0/10 HPI: Harris is unaccompanied for today's visit. He reports he has been well since his procedure. He reports he did not have to take any of the narcotic pain medication. He denies any vision changes post operatively. Examination: Patient is alert, conversant, comfortable, ambulating Facial incision: CDI, healing well. Vision is intact Lid closes completely. No ectropion, no entropion. No signs of infection No collection, no erythema, no evidence of cellulitis. Impression: Harris Quiroz is a 44 y.o. male who was seen today for follow-up after the above procedure. Please see the operative note for details. He is doing well without complaints. Throughout today's visit, I answered his questions and addressed his concerns. I advised him that he will continue to heal and change with time. I discussed the importance of resuming eyelid massage exercises as he was previously doing. He should follow up with Dr. Arboleda in 1 month or sooner if needed. Photos taken today with informed signed consent Plan: 1. Follow up with Dr. Arboleda in 1 month or sooner if needed 2. Resume eyelid massages as previous doing 3. No activity restrictions Neil, Perri Urrutia, am acting as scribe for Melinda Pulliam. All work documented was performed by Rob. ???I performed the above scribed service and agree with the accuracy of the note?? Melinda Pulliam APRN documented in this encounter Plan of Treatment Not on file documented as of this encounter Visit Diagnoses Diagnosis Ectropion of eyelid, right documented in this encounter Care Teams Coldfusion Relationship Specialty Start Date End Date Hawa Russell APRN PCP - General 05/03/10 08/06/16 documented as of this encounter
--- OUTSIDE RECORDS SUMMARY | 2024-06-20 19:12 | XMS_ITS | Encounter Summary ---
Author Organization [facility] Address [facility] [place] [address] Care Team Providers Care Survey Research Analyst Name Role Phone Hawa Russell APRN Primary Care Provider [phone] Reason for Visit * Reason Comments Follow Up Surgery f/u canthoplasty dos 06/10/14 Encounter Details Date Type Department Care Team (Late st Contact Info) Description 07/29/2014 8:15 AM EST Follow-[place] [address] Jared Arboleda MD [facility] [place] [address] Ectropion of eyelid, right Discharge Disposition: Home [...] Sign Reading Time Taken Comments Blood Pressure 133/77 07/29/2014 8:01 AM EST Pulse 52 07/29/2014 8:01 AM EST Temperature - - Respiratory Rate - - Oxygen Saturation - - Inhaled Oxygen Concentration - - Weight 103.9 kg (229 lb) 07/29/2014 8:01 AM EST Height 185.4 cm (6' 1) 07/29/2014 8:01 AM EST Body Mass Index 30.21 07/29/2014 8:01 AM EST documented in this encounter Patient Instructions * Patient Instructions* Perri Urrutia - 07/29/2014 8:06 AM EST Plan: 1. Follow up as needed 2. Continue eyelid massages 3. No activity restrictions documented in this encounter Progress Notes * Jared Arboleda MD - 07/29/2014 7:57 AM EST Plastic Surgery Follow Up Note Jared Arboleda MD Reason for visit: F/U status post procedure Date of surgery: 06/10/14 Procedure(s): Right sided canthoplasty Complications: None reported HPI: Harris is unaccompanied for today's visit. He reports he has been well since his last visit. Hereports some occasional discomfort but otherwise denies any concerns or complaints. Examination: BP 133/77 Pulse 52 Patient is alert, conversant, comfortable, ambulating Facial incision: CDI, healing well. Vision is intact Lid closes completely. No ectropion, no entropion. Mild edema present as expected No signs of infection No collection, no erythema, no evidence of cellulitis. Impression: Harris Quiroz is a 44 y.o. male who was seen today for follow-up. He has continued tomake healing progress to date. I advised he that he will continue to heal and change for up to 1 year post op. I also advised him that the edema and erythema will continue to subside with time. He should continue eyelid massage as he has been previously directed. He no longer has any activity restrictions. Throughout today's visit, I answered his questions and addressed his concerns. I will follow up with him on an as needed basis. Photos taken today with informed signed consent Plan: 1. Follow up as needed 2. Continue eyelid massages 3. No activity restrictions I, Perri Urrutia, am acting as scribe for Dr Arboleda. All work documented was performed by Dr Arboleda. ???I performed the above scribed service and agree with the accuracy of the note?? Jared Arboleda MD documented in this encounter Plan of Treatment Not on file documented as of this encounter Visit Diagnoses Diagnosis Ectropion of eyelid, right documented in this encounter Care Teams Survey Research Analyst Relationship Specialty Start Date End Date Hawa Russell APRN PCP - General 05/03/10 08/06/16 documented as of this encounter
--- OUTSIDE RECORDS SUMMARY | 2024-06-20 19:12 | XMS_ITS | Clinical Summary ---
Author Organization [facility] Address [facility] [place] [address] Care Team Providers Care Real Estate Coordinator Name Role Phone Unknown Primary Care Provider Unavailabl e Allergies No known active allergies Medications Medication Sig Dispensed Refills Start Date End Date Status omeprazole (PRILOSEC) 10 mg Capsule, Delayed Release(E.C.) Take 10 mg by mouth daily. Active TAMSULOSIN HCL (FLOMAX ORAL) Take by mouth. Active FLUoxetine (PROZAC) 10 mg Tablet Take 10 mg by mouth daily. Active clonazePAM (KLONOPIN) 0.5 mg Tablet Take 0.5 mg by mouth 2 times daily as needed for Anxiety. Active aspirin 81 mg Tablet, Delayed Release (E.C.) Take 81 mg by mouth daily. Active Active Problems Problem Noted Date Diagnosed Date Superficial trauma of eyelid 05/09/2014 Ectropion of eyelid 05/09/2014 Social History Tobacco Use Types Packs/Day Years [...] on file Sexual Orientation Not on file Last Filed Vital Signs Vital Sign Reading Time Taken Comments Blood Pressure 133/77 07/29/2014 8:01 AM EST Pulse 52 07/29/2014 8:01 AM EST Temperature 36.3 ??C (97.3 ??F) 06/10/2014 3:23 PM ES T Respiratory Rate 16 06/10/2014 3:35 PM EST Oxygen Saturation 95% 06/10/2014 4:00 PM EST Inhaled Oxygen Concentration - - Weight 103.9 kg (229 lb) 07/29/2014 8:01 AM EST Height 185.4 cm (6' 1) 07/29/2014 8:01 AM EST Body Mass Index 30.21 07/29/2014 8:01 AM EST Plan of Treatment Health Maintenance Due Date Last Done Comments CT Colonography 1969 Colonoscopy 1969 Colorectal Cancer Screening 1969 FIT DNA 1969 FIT 1969 Sigmoidoscopy (10 year) with FIT yearly 1969 Sigmoidoscopy 1969 HIV screen 1987 Hepatitis C Screening 1987 Lipid Screening 1987 Hepatitis B vaccine (0-59 yrs) (1) 1988 Tetanus/Diphtheria/Pertussis Vaccines (1 - Tdap) 06/07 Zoster vaccine (1 of 2) 2019 Covid-19 Vaccine (1 - 2023- season) 2024 Influenza (Flu) vaccine (1 o f 1 - Influenza standard series) 02/10/2024 Advance Directive 2024 Care Teams Real Estate Coordinator Relationship Specialty Start Date End Date Unknown None PCP - General 08/07/16
--- OUTSIDE RECORDS SUMMARY | 2024-06-20 19:12 | XMS_ITS | Encounter Summary ---
Author Organization [facility] [place] [address] Care Team Providers Care Sheet Metal Installer Name Role Phone RussellHawa lewis Adam HENDRIX Primary Care Provider [phone] Encounter Details Date Type Department Care Team (Late st Contact Info) Description 06/10/2014 2:09 PM EST Anesthesia Event [place] [address] Ankita Gutierrez DO Toth, [facility] [place] [address] Anesthesia Record Procedure Summary Procedure Name Responsible Anesthesiologist Anesthesia Start Time Anesthesia Stop Time CANTHOPLASTY (WRVU 5.99) (Right: Face) Ankita Gutierrez DO 06/10/14 1409 06/10/14 1525 Events Date Time Event Comment 06/10/2014 1310 1409 Start 1411 AN Verify 1413 An Start Data 1414 An Induction 1416 An Intubation 1418 Anesthesia Ready 1519 Extubation/LMA Out 1519 an stop data 1525 Stop 1525 Handoff The patient's c horner was reviewed. The current anestetic course as well as the anesthetic plans were also reviewed. Meds Name Total Midazolam 2 mg fentaNYL 50 mcg IV Lidocaine 40 mg Propofol 250 mg ePHEDrine 10 mg Ondansetron 4 mg Dexamethasone 4 mg Glycopyrrolate 0.2 mg Propofol INF 422.42 mg ceFAZolin 1 g Ketorolac 30 mg lactated ringers infusion 1,000 mL 600 m L * Agents Name O2 Air N2O Sevoflurane (et) * Blood No blood administrations on file. Lines, Drains, and Airways Type Details Placement Removal Incision 06/10/14; orbital region; 02/06/22 (LDA cleanup utility RA#[id number]); 1715 (LDA cleanup utility RA#[id number]) 06/10/14 0000 by Nalini Pino RN 02/06/22 1715 by Ashu Faust (RETIRED) Peripheral IV Line - Single Lumen 06/10/14; 1300; metacarpal vein left (top of hand); czwm-yet-iclytz catheter system; 20 gauge, 1 in length; 06/10/14; 1605 06/10/14 1300 by Anne Marie Jauregui RN 06/10/14 1605 by Becca Andersen RN Supraglottic Mask Ventilation: No t Attempted (0); LMA Type: Flexible; LMA Size: 4; Inserted by: Minesh Naik CRNA; Removal Date: 06/10/14; Removal Time: 1519 06/10/14 1416 by Samantha Naik CRNA 06/10/14 1519 by Samantha Naik CRNA Supraglottic Oral Airway: 100 mm (5); Inserted by: Minesh Naik CRNA; Removal Date: 06/10/14; Removal Time: 1605 06/10/14 1519 by Samantha Naik CRNA 06/10/14 1605 by Becca Andersen RN documented in this encounter Social History Tobacco Use Types Packs/Day Years [...] on file documented as of this encounter OR Notes * Anesthesia Postprocedure Evaluation - Ankita Gutierrez DO - 06/10/2014 4:06 PM EST Patient: Harris Quiroz Procedure(s) Performed: Procedure(s): CANTHOPLASTY Actual Anesthetic: general Patient location: PACU Post-op pain: Adequate analgesia Post-op nausea: no nausea or vomiting Last Vitals: Filed Vitals: 06/10/14 1544 BP: Pulse: 82 Temp: Resp: Post-op cardiovascular and respiratory status: is stable Level of consciousness: awake, alert and oriented Complications: no apparent complications and tolerated the procedure well Fluid Status: normal * Anesthesia Preprocedure Evaluation - Ankita Gutierrez DO - 06/09/2014 3:04 PM EST Pre-Anesthesia Evaluation for: Harris Quiroz a 44 y.o. male. Procedure(s): CANTHOPLASTY Patient Active Problem List Diagnosis ??? Superficial trauma of eyelid ??? Ectropion of eyelid Past Medical History Diagnosis Date ??? Anxiety ??? Depression ??? ETOH abuse ??? BPH (benign prostatic hyperplasia) No past surgical history on file. History Substance Use Topics ??? Smoking status: Never Smoker ??? Smokeless tobacco: Current User Types: Chew ??? Alcohol Use: Yes Comment: Notes infrequent but will drink to excess when he does History Drug Use No No Known Allergies Medications: MAR and/or home medications have been reviewed. Physical Exam: There were no vitals filed for this visit. There is no weight on file to calculate BMI. Anesthesia Physical Exam Anesthesia Plan: ASA 2 general, with a(n) intravenous induction Hx of Depression/Anxiety and GERD- Well controlled and asymptomatic Remote hx of ETOH abuse Pt denies CP/SOB/PND/Orthopnea/GERD s/s No family hx of difficulty w anesthesia Plan GA (LMA ok)/MARIA/VA maint/P op PACU care and IV pain control IC for anesthesia obtained Region - Other Informed Consent: Anesthetic plan and risks discussed with patient. Plan discussed with ALUMINUM BOAT INSPECTOR. [facility]. Assessment: documented in this encounter Plan of Treatment Not on file documented as of this encounter Visit Diagnoses Not on filedocumented in this encounter Administered Medications Inactive Administered Medications - up to 3 most recent administrations Medication Order MAR Action Action Date Dose Rate Site ceFAZolin (ANCEF) 1g in dextrose 5% 50mL PRN, Starting on Sun06/10/14 at 1412, Until Sun06/10/14 at 1525, Administer over 30 Minutes, Anesthesia Intra-op Given 06/10/2014 2:12 PM EST 1 g dexamethasone (DECADRON) injection PRN, Starting on Sun06/10/14 at 1427, Until Sun06/10/14 at 1525, Anesthesia Intra-op, Routine Given 06/10/2014 2:27 PM EST 4 mg ePHEDrine Sulfate in sodium chloride 0.9% (PF) 50 mg/10 mL (5 mg/mL) injection Syrg PRN, Starting on Sun06/10/14 at 1432, Until Sun06/10/14 at 1525, Anesthesia Intra-op Given 06/10/2014 2:32 PM EST 10 mg fentaNYL 50mcg/mL injection PRN, Starting on Sun06/10/14 at 1449, Until Sun06/10/14 at 1525, Pain, Anesthesia Intra-op, Routine Given 06/10/2014 2:51 PM EST 25 mcg Given 06/10/2014 2:49 PM EST 25 mcg glycopyrrolate (ROBINUL) injection PRN, Starting on Sun06/10/14 at 1427, Until Sun06/10/14 at 1525, Anesthesia Intra-op, Routine Given 06/10/2014 2:30 PM EST 0.1 mg Given 06/10/2014 2:27 PM EST 0.1 mg ketorolac (TORADOL) injection PRN, Starting on Sun06/10/14 at 1513, Until Sun06/10/14 at 1525, Pain, Anesthesia Intra-op, Routine Given 06/10/2014 3:13 PM EST 30 mg lidocaine (PF) (XYLOCAINE) 100 mg/5 mL (2 %) injection PRN, Starting on Sun06/10/14 at 1416, Until Sun06/10/14 at 1525, Anesthesia Intra-op, Routine Given 06/10/2014 2:16 PM EST 40 mg midazolam (PF) (VERSED) 1 mg/mL injection PRN, Starting on Sun06/10/14 at 1414, Until Sun06/10/14 at 1525, Sleep, Anesthesia Intra-op, Routine Given 06/10/2014 2:14 PM EST 2 mg ondansetron (ZOFRAN) injection PRN, Starting on Sun06/10/14 at 1513, Until Sun06/10/14 at 1525, Nausea, Anesthesia Intra-op, Routine Given 06/10/2014 3:13 PM EST 4 mg propofol (DIPRIVAN) 10 mg/mL bolus injection (Anesthesia) PRN, Starting on Sun06/10/14 at 1416, Until Sun06/10/14 at 1525, Anesthesia Intra-op Given 06/10/2014 2:16 PM EST 250 mg propofol (DIPRIVAN) infusion CONTINUOUS PRN, Starting on Sun06/10/14 at 1419, Until Sun06/10/14 at 1525, Anesthesia Intra-op, Routine New Bag 06/10/2014 2:19 PM EST 75 mcg/kg/min 46.9 mL/hr documented in this encounter Care Teams Sheet Metal Installer Relationship Specialty Start Date End Date Hawa Russell APRN PCP - General 05/03/10 08/06/16 documented as of this encounter
--- OUTSIDE RECORDS SUMMARY | 2024-06-20 19:12 | XMS_ITS | Referral Summary ---
Author Organization [facility] Address [address] [place] [address] Care Team Providers Care Jack Spooler Tender Name Role Phone Mojgan Thompson MD Primary Care Provider [phone] Social History Tobacco Use Types Packs/Day Years Used Date Smoking Tobacco: Never Assessed Interpersonal Safety Answer Date Record ed Physically Hurt Never 01/29/2020 Verbally Threaten Not on file 01/29/2020 Sex and Gender Information Value Date Recorded Sex Assigned at Not on file Legal Sex Male 18:22 EST Gender Identity Not on file Sexual Orientation Not on file Plan of Treatment Not on file Care Teams Jack Spooler Tender Relationship Specialty Start Date End Date Mojgan Thompson MD [address] [place] [address] [address] [facility] [address] [place] [id number] PCP - General 01/22/20
--- OUTSIDE RECORDS SUMMARY | 2024-06-20 19:12 | XMS_ITS | Encounter Summary ---
Author Organization [facility] Address [address] [place] [id number] Care Team Providers Care Mannequin Wig Maker Name Role Phone Unavailable Primary Care Provider Unavailabl e Encounter Details Date Type Department Care Team (Late st Contact Info) Description 06/17/2009 Orders Only [facility] - [facility] ([facility] [place] [address] [place] [address] Michael Bliss MD [address] [place] [address] Social History Tobacco Use Types Packs/Day Years [...] Date/Time Associated Diagnosis Comments SURGICAL PATHOLOGY Routine 06/17/2009 0:00 EST documented in this encounter Results * SURGICAL PATHOLOGY (06/17/2009 0:00 EST) Pathology Report: SURGICAL PATHOLOGY REPORT ? Reports generated via electronic interface contain original data; ? however they are lacking the format of the original report. ? Caution should be taken when reading/interpreti ng unformatted reports. ? Name: ? JANIA QUIROZ ? Accession #: ? [id number] ? : ? 1970 (Age: 39) ??M ? Collect Date: ? 06/17/2009 ? Location: ? [facility] ? Receive Date: ? 06/17/2009 ? Provider: MICHAEL BLISS MD ? Copy to: [employer]ON[employer] ? Final Pathologic Diagnosis: ? Esophagus, 40 cm, biopsies: ? 1. ?Gastroesophageal junctional mucosa with reactive changes. ? - No specialized intestinal metaplasia/no dysplasia. ? 2. ?? Gastric body mucosa with no specific pathologic features. ? Document reviewed and electronically signed by: ? YAMILE TEMPLEOX MD ? Report ??Date: 06/22/2009 10:41 ? By the signature above, the attending physician certifies that he/she has ? personally conducted a gross and/or microscopic examination of the described ? specimens and rendered or confirmed the above diagnosis. ? Specimen(s) Received: ? Esophagus 40 cm ? Clinical History: ? Epigastric pain and bloating ? Gross Description: ? Received in Hollande's fixative labelled Lockestephania, Jania and esophagus 40 cm are four pink-cordero irregular soft tissues ranging from 0.3 x 0.3 x 0.2 cm to 0.4 x 0.3 x 0.2 cm, submitted in toto in (A1) and (A2). (Yolanda Alberto)/mpl ? End of Report ? SEEMA FRANCIS 06/17/2009 06/17/2009 7:2 2 EST us Michael Bliss MD PATHOLOGY ORDERABLES Final Result SEEMA FRANCIS [address] [place] [address] documented in this encounter Visit Diagnoses Not on filedocumented in this encounter
[2024-06-20 19:43] LABS: ALT 47 U/L (16-63); Anion Gap 6.4 mmol/L (3-11); BUN 15 mg/dL (7-18); CO2 31.6 mmol/L (21.0-32.0); CREATININE 0.9 mg/dL (0.70-1.30); Calcium 9.4 mg/dL (8.5-10.1); Calculated LDL 82 mg/dL (<100); Chloride 104 mmol/L (98-107); Cholesterol 141 mg/dL (<200); Estimated GFR 100.86 (mL/min/1.73m2); Glucose 93 mg/dL (74-106); HDL Cholesterol 46 mg/dL (40-60); Potassium 3.7 mmol/L (3.5-5.1); Sodium 142 mmol/L (136-145); Triglyceride 69 mg/dL (<150)
== END 2024-06-20 19:08 | disposition home or self-care (01) ==
LOC: NCHCN 19:07
PROVIDERS: PCP Family Medicine; Visit Provider Family Medicine
DX: I10 Essential (primary) hypertension (principal); E78.5 Hyperlipidemia, unspecified; Z51.81 Encounter for therapeutic drug level monitoring
CPT/HCPCS: 80048; 80061; 84460

== ENCOUNTER 2024-12-31 13:56 | Outpatient (REF) | payer OTHER, SELFPAY ==
[2024-12-31 16:27] LABS: HCT 45.4 % (40.0-50.0); HGB 15.2 g/dL (13.5-17.5); MCH 28.9 pg (27.0-33.0); MCHC 33.5 % (32.0-36.0); MCV 86 fL (80-95); MPV 12.6 fL (8.0-11.0); Platelet Count 229 10^3/uL (130-400); RBC 5.26 10^6/uL (4.36-5.78); RDW 13.4 % (11.8-14.1); RDW-SD 42.6 fL; WBC 5.85 10^3/uL (4.4-10.8)
[2024-12-31 16:41] LABS: ALT 58 U/L (16-63); AST 40 U/L (15-37); Albumin 4.5 g/dL (3.4-5.0); Alkaline Phosphatase 98 U/L (46-116); Anion Gap 12.5 mmol/L (3-11); BUN 13 mg/dL (7-18); Bilirubin, Total 0.6 mg/dL (0.2-1.0); CO2 25.5 mmol/L (21.0-32.0); Calcium 9.2 mg/dL (8.5-10.1); Chloride 103 mmol/L (98-107); Estimated GFR 114.00 (mL/min/1.73m2); Glucose 91 mg/dL (74-106); Lipase 39 U/L (<78); Potassium 4.0 mmol/L (3.5-5.1); Sodium 141 mmol/L (136-145); Total Protein 7.2 g/dL (6.4-8.2)
== END 2024-12-31 13:57 | disposition home or self-care (01) ==
LOC: NCHCN 13:56
PROVIDERS: PCP Family Medicine; Visit Provider Physician Assistant
DX: R10.13 Epigastric pain (principal)
CPT/HCPCS: 80053; 83690; 85027

== ENCOUNTER 2025-01-25 16:33 | Emergency (ER) | payer OTHER, SELFPAY ==
[2025-01-25] VITALS (33 sets, daily range): BP systolic 151–213; BP diastolic 80–111; PULSE 48–76; RESP 10–22; TEMP 36; O2SAT 88–98
--- NOTE | 2025-01-25 16:30 | RT.EKG_ITS ---
APPROVED REPORT Exam: Resting ECG Reason for Exam: high blood pressure Patient Location: E HR:72 bpm ECG Measurements Heart Rate 72 AXIS LA 167 P 15 QRSd 105 QRS 36 QT 409 T 47 QTc 449 Conclusion Sinus rhythm, rate 72 No interval abnormalities No STEMI Q wave lead III, no priors available for comparison Borderline ST depression <1mm lateral leads
--- NOTE | 2025-01-25 17:24 | W.ED.GENAD ---
Discharge Plan Disposition Patient Disposition: Home Condition: Stable Discharge Details Clinical Impression: Hypertension, GERD (gastroesophageal reflux disease), Sludge in gallbladder Primary Care Provider: Mojgan Thompson ED Provider: Onelia Elaine Home Meds and New Rx's Prescriptions: No Action lisinopril 10 mg tablet 40 mg PO DAILY Patient Comments: pt states he is taking 5mg daily now pravastatin 40 MG tablet 80 mg PO DAILY Qty: 180 3RF fluoxetine 20 mg capsule 60 mg PO DAILY tamsulosin 0.4 mg capsule See Rx Instructions .ROUTE .COMPLEX Qty: 180 2RF Dose Instruction: TAKE 2 CAPSULES BY MOUTH DAILY Rx Instructions: TAKE 2 CAPSULES BY MOUTH DAILY fesoterodine [Toviaz] 4 mg tablet extended release 24 hr 4 mg PO DAILY Qty: 30 3RF omeprazole [Prilosec] 20 MG capsule,delayed release(DR/EC) 20 mg PO DAILY clonazepam 0.5 MG tablet 0.5 mg PO BID aspirin [Aspir-81] 81 MG tablet,delayed release (DR/EC) 81 mg PO DAILY nicotine [Nicoderm CQ] 14 mg/24 hr patch 24 hour 1 patch transdermal DAILY Patient Comments: removed from pt right arm r/t high bp Discharge Instructions Instructions: High Blood Pressure ED Additional Instructions: You were seen in the emergency department today for evaluation of high blood pressure with palpitations. In our department had full physical examination performed, and had laboratory studies that were very reassuring, including negative cardiac enzymes. However, you did have a slightly low potassium, and received potassium in the emergency department to fix this. Your primary care provider will need to recheck your potassium in the next few weeks to ensure that it stays normal. Your blood pressure improved on its own and at this time we are not going to make any changes to your medications. You need to follow-up with your primary care provider to discuss your stress test, and any ongoing medication management needs. You did have some abdominal pain with no evidence of gallbladder attack today, but you do have some sludge in your gallbladder and a history of worsening of your acid reflux. For this reason you were referred to general surgery to discuss endoscopy and management of your gallbladder. Please follow-up with your primary care provider in the next few days to discuss this visit and any symptoms that change, worsen, or persist. Thank you for allowing us to be part of your care. HPI General Mode of arrival: ambulatory. Date/Time Provider Initiated Documentation: 01/25/25 16:35. Limitations to Documentation: no limitations. Information obtained by: patient, family and old records reviewed. HPI Narrative: This is a 54-year-old male patient with a past medical history significant for hypertension, hyperlipidemia, IBS, and GERD, presenting for evaluation of palpitations and high blood pressure. The patient reports that he has had intermittent palpitations for some time, they seem to occur more frequently after eating, and last for 1 heartbeat at a time. He states that he has had some increasing GERD symptoms with gas and abdominal fullness over the past few weeks. He was recently taken off of his HCTZ due to some subjectively low blood pressures in the 110's over 65, which caused him some dizziness. He is currently taking his lisinopril, 40 mg. His blood pressure at home is typically in the 140s, but today he noticed it was increasing to the 160s, and it his arrival in the ED he was in the 170s by manual blood pressure. The patient reports that he is not experiencing any headache or vision changes, chest pain or shortness of breath. He is not currently experiencing palpitations. Has been eating and drinking typically. Has a history of tobacco use but no longer, now using nicotine patches. Occasional alcohol use. No history of abdominal surgeries. Related Data Home Medications ?Medication ?Instructions ?Recorded ?Confirmed aspirin 81 mg tablet,delayed 81 mg PO DAILY 12/10/13 01/25/25 release (Aspir-) clonazepam 0.5 mg tablet 0.5 mg PO BID 12/10/13 01/25/25 omeprazole 20 mg capsule,delayed 20 mg PO DAILY 12/10/13 01/25/25 release (Prilosec) pravastatin 40 mg tablet 80 mg (2 x 40 mg) PO DAILY #180 08/14/17 01/25/25 tab-caps fluoxetine 20 mg capsule 60 mg PO DAILY 11/26/20 01/25/25 lisinopril 10 mg tablet 40 mg PO DAILY 06/13/21 01/25/25 tamsulosin 0.4 mg capsule See Rx Instructions .Route 05/08/22 01/25/25 .COMPLEX #180 caps fesoterodine 4 mg tablet,extended 4 mg PO DAILY #30 tabs 01/21/25 01/25/25 release 24 hr (Toviaz) nicotine 14 mg/24 hr daily 1 patch transdermal DAILY 01/25/25 01/25/25 transdermal patch (Nicoderm CQ) Previous Rx's ?Medication ?Instructions ?Recorded pravastatin 40 mg tablet 80 mg (2 x 40 mg) PO DAILY #180 08/14/17 tab-caps tamsulosin 0.4 mg capsule See Rx Instructions .Route 05/08/22 .COMPLEX #180 caps fesoterodine 4 mg tablet,extended 4 mg PO DAILY #30 tabs 01/21/25 release 24 hr (Toviaz) Allergies Allergy/AdvReac Type Severity Reaction Status Date / Time rosuvastatin AdvReac Mild myalgias Unverified 01/25/25 16:47 oxybutynin AdvReac Agitation, Verified 01/25/25 16:47 made me ugly solifenacin (From Vesicare) AdvReac mental Verified 01/25/25 16:47 status change General Stated Complaint: Arrhythmia FRANCESCA: 3 Exam Narrative Exam Narrative: Gen: Awake and alert, in no apparent distress HEENT: Non-icteric sclera Neck: Supple Lungs: No apparent respiratory distress, normal respiratory effort. Lung sounds clear and equal bilaterally CV: Appears well perfused, heart with bradycardic rate but regular rhythm, strong distal pulses. Abdomen: Non-distended, soft, nontender to palpation without rigidity, rebound, or guarding. Dang sign is negative MSK: Moves 4 extremities without apparent limitation in ROM. The patient has no peripheral edema no unilateral calf tenderness or swelling Skin: Visualized skin without rashes, cyanosis. Neuro: Normal Gait, no obvious focal deficits or facial asymmetry. Speaks in full, clear sentences. Psych: Appropriate for situation. Course Vital Signs Vital signs: Vital Signs Temperature 36.0 C L 01/25/25 16:39 Pulse 76 01/25/25 16:39 Respiratory Rate 16 01/25/25 16:39 Blood Pressure 190/91 H 01/25/25 16:39 Pulse Oximetry 98 01/25/25 16:39 Temperature 36.0 C L 01/25/25 16:39 Pulse 54 L 01/25/25 17:20 Pulse 54 L 01/25/25 17:20 Respiratory Rate 11 L 01/25/25 17:20 Blood Pressure 174/92 H 01/25/25 17:15 Blood Pressure Mean 122 01/25/25 17:15 Pulse Oximetry 97 01/25/25 17:20 Pain Level 0 01/25/25 16:39 Medical Decision Making This is a 54-year-old male patient presented for evaluation of high blood pressure, palpitations, and GERD. My differential includes but is not limited to arrhythmia, including ectopic beats such as PVCs (very infrequent PVCs appreciated on telemetry during his visit in this emergency department), considered ACS, hypertensive emergency was considered though less likely in this patient with no associated chest pain. Considered metabolic derangements, kidney injury, liver disease, hypothyroidism. I considered abdominal pathology including peptic ulcer disease and gastritis, pancreatitis, cholecystitis, cholelithiasis. With no headache or neurodeficits I feel that the risk of intracranial hemorrhage, mass effect, stroke is quite low. He has no headache or vision changes to suggest press or RCVS. Overall, I am reassured that this patient is currently asymptomatic. We will obtain laboratory studies to include CBC, CMP, magnesium, troponin, and lipase. I obtained and reviewed an EKG, which shows a sinus rhythm with rate of 72, with no ischemic changes. He does not have any priors available in our system to compare to. - I independently interpreted the laboratory studies, which show no significant leukocytosis, anemia, or thrombocytopenia. The chemistry panel is without evidence of electrolyte abnormality, kidney dysfunction, or liver injury, other than a slightly low potassium at 3.1, and a borderline ALT elevation to 67. Troponin was negative and without interval increase in 1 hour delta recheck. Lipase is low, TSH is slightly above the upper limits of normal, but the free T4 is normal. I provided potassium repletion, and monitor the patient's blood pressure which declines appropriately and at the time of reassessment is in the 160s systolic. I had an extended conversation with the patient regarding his workup and findings today. He has not had sustained dysrhythmias on telemetry, but would benefit from outpatient PCP follow-up and referral for stress testing, Holter monitoring, etc. The patient did endorse some postprandial epigastric pain, and I obtained a bedside gallbladder ultrasound that showed sludge in the gallbladder but no wall thickening, pericholecystic fluid, or other concerning findings for acute cholecystitis. He has a negative Dang sign and is currently pain-free. I placed a referral to general surgery to discuss his gallbladder findings, as well as for endoscopy given the worsening of his baseline GERD symptoms. At this time, the patient has had a full medical evaluation and is safe for discharge to home. I do not see an indication at this time to emergently change his antihypertensive regimen. He is hemodynamically stable, ambulatory, and tolerating PO. They are understanding of the follow-up plan and return precautions. They left our facility without incident. Onelia Elaine MD [facility] All Active Problems (Updated 01/25/25 @ 18:48 by Onelia Elaine MD) Sludge in gallbladder (Acute) Family history of prostate cancer (Acute) OAB (overactive bladder) (Acute) Colon polyp, hyperplastic (Acute ~01/2020) 01/2020 Dr. Francie Talamantes, repeat 10 years Diverticulosis (Acute) Colon polyps (Acute) Encounter for screening colonoscopy (Acute) Family history of abdominal aortic aneurysm (AAA) (Acute) BPH (benign prostatic hyperplasia) (Chronic) Hiatal hernia (Chronic) Patient denies. Lumbosacral disc herniation (Acute) IBS (irritable bowel syndrome) (Chronic) Anxiety and depression (Chronic) GERD (gastroesophageal reflux disease) (Chronic) Hyperlipidemia (Acute) Hypertension (Chronic) Left knee pain (Acute) Medical History (Updated 01/25/25 @ 18:48 by Onelia Elaine MD) Nocturia Social History Smoking/Tobacco Use Status: Former Tobacco Use Quit Date: 06/11/04 Smoking risk assessment performed?: Yes Alcohol Intake: current Alcohol Intake frequency: holidays/special occasions only Drug use: Never Substance use type: does not use Do you feel safe at home: Yes Do you feel safe in your relationship?: Yes PAWSS Have you Been Recently Intoxicated or Drunk Within the Last 30 days?: No Have you Ever Experienced Previous Episodes of Alcohol Withdrawal?: No Have you ever Experienced Withdrawal Seizures?: No Have you ever Experienced Delirium Tremens(DT)s?: No Have you ever undergone Alcohol Rehabilitation Treatment (i.e, inpt ot outpatient treatment programs)?: No Have you ever Experienced Blackouts?: No Have you ever Combined Alcohol with other Downers within the last 90 days?: No Have you ever Combined Alcohol with any other Substance of Abuse during the last 90 days?: No Positive Blood Alcohol level on Presentation? [PCS.BAL]: No Evidence of Increased Autonomic Activity (i.e. HR>120, tremor, sweating, agitation, nausea)?: No Result: 0 POCUS Exam (ED) Limited Gallbladder Exam DATE OF EXAM: 01/25/25 TIME OF EXAM: 19:00 PROVIDER THAT PERFORMED THE STUDY: Onelia Elaine REASON FOR VISIT: RUQ pain (post-prandial) VISUALIZED STRUCTURES: Common bile duct, Gallbladder and Liver PERTINENT FINDINGS/IMPRESSION: Sludge in gallbladder; No Cholecystitis Exam complete
[2025-01-25 17:28] LABS: Abs Immature Grans 0.01 10^3/uL (0.0-0.06); HCT 46.5 % (40.0-50.0); HGB 15.7 g/dL (13.5-17.5); Immature Grans % 0.2 %; MCH 29.0 pg (27.0-33.0); MCHC 33.8 % (32.0-36.0); MCV 86 fL (80-95); MPV 11.7 fL (8.0-11.0); Platelet Count 236 10^3/uL (130-400); RBC 5.41 10^6/uL (4.36-5.78); RDW 13.0 % (11.8-14.1); RDW-SD 40.7 fL; WBC 6.30 10^3/uL (4.4-10.8)
[2025-01-25 17:37] LABS: Lipase 32 U/L (<78)
[2025-01-25 17:48] LABS: ALT 67 U/L (16-63); AST 36 U/L (15-37); Albumin 4.5 g/dL (3.4-5.0); Alkaline Phosphatase 104 U/L (46-116); Anion Gap 9.7 mmol/L (3-11); BUN 12 mg/dL (7-18); Bilirubin, Total 0.8 mg/dL (0.2-1.0); CO2 30.3 mmol/L (21.0-32.0); Calcium 9.4 mg/dL (8.5-10.1); Chloride 104 mmol/L (98-107); Estimated GFR 79.28 (mL/min/1.73m2); Glucose 96 mg/dL (74-106); Magnesium 2.4 mg/dL (1.8-2.4); Potassium 3.1 mmol/L (3.5-5.1); Sodium 144 mmol/L (136-145); TSH (W/Ref FT4) 4.17 uIU/mL (0.36-3.74); Total Protein 7.7 g/dL (6.4-8.2); Troponin I 27 ng/L (<or=76)
[2025-01-25] MEDS: Potassium Chloride 20 MEQ TABCR 40 MEQ PO (18:06)
[2025-01-25] MEDS: POTASSIUM CHLORIDE 10 MEQ/100 ML BAG 100 MEQ IV_INF (18:07)
[2025-01-25] MEDS: Normal Saline 500 ML IV (18:07)
[2025-01-25 18:12] LABS: Troponin I 29 ng/L (<or=76)
== END 2025-01-25 19:26 | disposition home or self-care (01) ==
PROVIDERS: Emergency Provider Emergency Medicine; PCP Family Medicine
DX: K82.8 Other specified diseases of gallbladder (principal); K21.9 Gastro-esophageal reflux disease without esophagitis; I10 Essential (primary) hypertension
CPT/HCPCS: 36415; 76705; 80053; 83690; 93005; 96360; 99284; 83735; 84439; 84443; 84484; 85025; 93010; J3480

== ENCOUNTER 2025-02-11 15:23 | Outpatient (REF) | payer OTHER, SELFPAY ==
[2025-02-11 17:07] LABS: Anion Gap 8.5 mmol/L (3-11); BUN 12 mg/dL (7-18); CO2 27.5 mmol/L (21.0-32.0); Calcium 9.0 mg/dL (8.5-10.1); Chloride 104 mmol/L (98-107); Estimated GFR 100.86 (mL/min/1.73m2); Glucose 103 mg/dL (74-106); Potassium 4.2 mmol/L (3.5-5.1); Sodium 140 mmol/L (136-145)
== END 2025-02-11 15:24 | disposition home or self-care (01) ==
LOC: NCHCN 15:23
PROVIDERS: PCP Family Medicine; Visit Provider Family Medicine
DX: I10 Essential (primary) hypertension (principal)
CPT/HCPCS: 80048

== ENCOUNTER 2025-02-19 02:49 | Outpatient (CLI) | payer OTHER, SELFPAY ==
--- NOTE | 2025-02-19 | DI.NM_ITS ---
APPROVED REPORT Exam: Exercise Treadmill Patient Location: Out-Patient Room/Bed: Stress Nurse: Julieth Brizuela RN Ordering Provider:TAMIKO EATON, Contact Number: [phone] BMI: 31.52 Baseline Rhythm: Sinus Bradycardia Indications: SOB, dizziness, giddiness, family hx heart disease Medical History Medical History: GERD, hiatal hernia, diverticulosis, BPH, IBS, anxiety, depression. HLD/HTN, disc herniation Cardiac Medications: Aspirin, pravastatin, lisinopril Allergies: Rosuvastatin. oxybutynin, solifenacin Cardiac Risk Factors: Family hx, HTN, HLD, former smoker, obesity Previous Cardiac Procedures: None Pretest Chest Pain Characteristics: None Exercise History: Physically active Physical Disabilities: None Lung Sounds: Clear to auscultation Heart Sounds: Regular Stress Test Details Test: Exercise stress testing was performed using a Ricky protocol. Nuclear Acquisition: Rest Tc-99m/Stress Tc-99m 1 day Rest Isotope: Tc-99m Sestamibi. Dose: 10.4 Date: 02/19/2025 Injection Time: 0900 Stress Isotope: Tc-99m Sestamibi. Dose: 30.5 Date: 02/19/2025 Injection Time: 1110 HR Resting HR Supine: 51 bpm Max Heart Rate (APMHR): 165 bpm Resting HR Standin bpm Target HR (85% APMHR): 140 bpm Max HR Achieved: 148 bpm % of APMHR: 90 Recovery HR: 72 bpm HR response to stress: Normal HR response to stress BP Resting BP Supine: 148/88 mmHg Resting BP Standin/80 mmHg Max BP: 168/62 mmHg Recovery BP: 124/72 mmHg BP response to stress: Normal blood pressure response to stress. ECG Resting ECG: Sinus Bradycardia Ectopy: None Stress ECG: Sinus Tachycardia ST Change: No significant ST segment changes noted Arrhythmia: Occasional PVC's Recovery ECG: Sinus Rhythm Recovery ST Change: No significant ST segment changes noted Recovery Arrhythmia: Occasional PVC's Clinical Reason for Termination: Fatigue Stress Symptoms: General Fatigue Exercise duration: 10 min42 sec Highest Stage Reached: Stage 4: 4.2 mph at 16% grade. Exercise capacity: 12.97 METs Angina Score: None Rob Treadmill Score: 10.4 Rate Pressure Product: [id number] Stress ECG Conclusion 1. Resting electrocardiogram was normal 2. Patient exercised on the Ricky protocol and completed workload of 13 METS 3. Normal heart rate and blood pressure response to exercise. The patient achieved 90% of maximal predicted heart rate for age 4. There was no electrocardiographic evidence of myocardial ischemia 5. There were no significant dysrhythmias 6. See MPI report Rob Treadmill Score is 10.4 which is Low risk. Stress Test Summary STAGE Time (mins) Speed (mph) Grade (%) HR BP SpO2 SYMPTOMS METS Supine 51 148/88 94% Standing 59 142/80 1 3 1.7 10 78 150/78 96% 4.5 2 6 2.5 12 95 168/62 99% 7 3 9 3.4 14 112 10 4 12 4.2 16 141 13 1 min recovery 125 128/62 97% 3 min recovery 89 158/70 6 min recovery 72 124/72 99% Patient met target HR. Requested to stop r/t general fatigue. Patients BP noted to be 128/62 immediately after exercise. Patietn denied dizziness, SOB or any other symptoms. Patient proceeded to imaging ambulatory in no apparent distress. MPI Conclusion Myocardial perfusion is normal. There is no ischemia or evidence of prior infarction Calculated EF is 50%. Visually it appears greater than 60% with normal wall motion
== END 2025-02-19 03:09 ==
LOC: DI 02:50
PROVIDERS: PCP Family Medicine; Visit Provider Internal Medicine Cardiovascular Disease
DX: R06.02 Shortness of breath (principal); Z82.49 Family history of ischemic heart disease and other diseases of the circulatory system
CPT/HCPCS: 78452; 93017

== ENCOUNTER 2025-03-17 10:23 | Day surgery (SDC) | payer OTHER, SELFPAY ==
--- NOTE | 2025-03-16 16:47 | W.PM.DSUDISC ---
Date of service: 03/17/25 Discharge Plan Disposition Patient Disposition: Home Condition: Good Discharge Details Reason For Visit: EGD Attending Provider: Ezra Quintana Primary Care Provider: Mojgan Thompson Home Meds and New Rx's Prescriptions: Continued lisinopril 10 mg tablet 40 mg PO DAILY Patient Comments: pt states he is taking 10mg daily now fluoxetine 20 mg capsule 60 mg PO DAILY tamsulosin 0.4 mg capsule See Rx Instructions .ROUTE .COMPLEX Qty: 180 2RF Dose Instruction: TAKE 2 CAPSULES BY MOUTH DAILY Rx Instructions: TAKE 2 CAPSULES BY MOUTH DAILY fesoterodine [Toviaz] 4 mg tablet extended release 24 hr 4 mg PO DAILY Qty: 30 3RF clonazepam 0.5 MG tablet 0.5 mg PO BID omeprazole [Prilosec] 20 mg capsule,delayed release(DR/EC) 40 mg PO BID atorvastatin 40 mg tablet 40 mg PO DAILY Discharge Instructions Instructions: Hiatal hernia, Gastritis, Acid reflux and GERD in adults Additional Instructions: Harris, it was good to see you today, and I hope you feel well after the procedure. I am glad that you have been doing well overall. The EGD went very smoothly. You have a small sliding hiatal hernia. This occurs when the top portion of your stomach slips above your diaphragm or your breathing muscle. Although this can cause some reflux type symptoms, I would consider yours to be the lowest grade, and am skeptical that anything needs to be done about this. There is an operation that can repair hiatal hernias, but I be skeptical it would make a big difference in your case. If you are interested in a referral to a specialist, more than happy to provide that. 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 I did multiple biopsies of the GE junction in an effort to help confirm or refute that. Those biopsies will take a week or 2 to get back. I also found 1 polyp in your stomach, that I removed today. This will also be sent to the pathologist for their review. Otherwise, there is only mild signs of gastritis, which does coincide with most of the symptoms that you describe. I think continuing the antacids is very reasonable, and I did some biopsies of your stomach to see if there is any evidence of Helicobacter pylori that may be driving this as an underlying cause. Again, when I have all the results of the biopsies together, give you a call. If you need anything in the meantime, please do not hesitate to call. 1. If tolerated, consume a soft, low fiber diet for 1-2 days. 2[address] Do not drive, drink alcohol, operate machinery, make critical decisions, or do activities that require coordination or balance for 24 hours. 3. You may experience a sore throat for 24 to 48 hours. You may use throat lozenges or gargle with warm salt water to relieve the discomfort. 4. Because air was put into your stomach during the procedure, you may experience some belching. 5. Go directly to the emergency room if you notice any of the following: Develop chills (warm to touch), or if you have a thermometer and your temperature is above 101 Difficulty breathing or difficultly swallowing Persistent vomiting Severe abdominal pain, other than gas cramps Severe chest pain Black, tarry stools Any bleeding ? exceeding one tablespoon 6. Call your physician if the site where your intravenous was started becomes red, swollen, painful, and warm to touch. 7. Your physician has reviewed your pre-procedure medications. Please continue to take those medications as previously ordered. You will be given specific information/education regarding any changes to your medications before leaving. Activity:: Activity as Tolerated Diet:: As Tolerated Discharge Orders Discharge Orders: Discharge Order (Routine); Ordered 03/16/25 Ordered By: Ezra Quintana DS: Diagnosis Discharge Diagnosis (1) GERD (gastroesophageal reflux disease): Status: Chronic Asessment and Plan: Follow-up on biopsy results
--- NOTE | 2025-03-16 16:48 | W.PM.ENDDOP ---
Date of service: 03/17/25 Time of Service: 12:08 Endoscopy Report DATE OF PROCEDURE: 03/17/25 PRE-OP DIAGNOSIS: Gastroesophageal reflux disease POST-OP DIAGNOSIS: other (Hill grade 1 sliding hiatal hernia, gastric polyp, gastritis) PROCEDURE: EGD with biopsies and polypectomy SURGEON: Ezra Quintana ANESTHESIA TYPE: General:No Airway ESTIMATED BLOOD LOSS: 10 PATHOLOGY: other (Biopsies of gastric antrum and body to rule out Helicobacter pylori, gastric polyp, four-quadrant biopsies of GE junction for Clemens's esophagus) COMPLICATIONS: None DISPOSITION: same day INDICATIONS: Harris is a 54-year-old man with longstanding gastroesophageal reflux disease symptoms, as well as nonspecific abdominal pain and bloating. He has had worsening symptoms despite escalating PPI therapy. PROCEDURE START TIME: 11:44 PROCEDURE END TIME: :54 FINDINGS: Hill grade 1 sliding hiatal hernia, mild irregularity of the Z-line at 40 cm; gastric polyp, mild antral gastritis PROCEDURE DESCRIPTION: After the initiation of anesthesia, and with the assistance of a bite block, I advanced a standard gastroscope through the mouth past the hypopharynx and into the esophagus.? Under the direct vision of the scope, I advanced down the esophagus towards the stomach.? There was very mild irregularity of the Z-line at the GE junction, which was about 40 cm past the incisors. There appears to be a sliding hiatal hernia. Narrowband imaging was used to assist with the analysis of the GE junction. Although it was generally regular, but certainly less than 1 cm of variability, some of the features did seem consistent with Clemens's, and given his longstanding history of poorly controlled GERD, I did not feel that biopsying this would be most appropriate. I did advance down into the stomach and perform retroflexion. Again seen is a Hill grade 1 sliding hiatal hernia. There is no evidence of any inflammation at the herniation edge. The gastric body was insufflated into the rugae were obliterated. There was a small gastric polyp along the greater curvature that was less than 1 cm. Although I believe this to be proximal to the incisura angularis, it is little difficult to decipher that exactly. Therefore, this was removed with cold forceps. There was minimal bleeding. I advanced down around the incisura angularis towards the pylorus. There was some mild gastral antritis. There was no evidence of any active ulceration or bleeding. I can advance down through the pylorus into the duodenum which was totally normal through the third portion. I then brought the camera back into the stomach and perform some nondirected biopsies of the gastric antrum and body to rule out Helicobacter pylori as a source of the gastritis in symptoms. these biopsies were performed with cold forceps with minimal bleeding. I brought the camera back up into the GE junction and perform four-quadrant biopsies to evaluate for Clemens's esophagus. Again, these were done with cold forceps with no significant bleeding. The camera was then advanced back down into the stomach 1 last time. It was emptied completely before removal of the scope along the length of the esophagus. The remainder of the esophageal exam was totally normal.
[2025-03-17 10:47] VITALS: BP 137/89; PULSE 60; RESP 16; TEMP 36; O2SAT 97
[2025-03-17] MEDS: Lactated Ringers 1,000 ML 80 ML IV (10:55)
--- NOTE | 2025-03-17 10:57 | ANES.PREOP_ITS ---
General Info Date of Service Date Performed: 03/17/25 Height: 6 ft 1 in Weight: 109.1 kg Body Mass Index (BMI): 31.7 Surgical Procedure: Operation Date: 03/17/25 10:50 Proposed Procedure Side Surgeon p Gastroscopy Ezra Quintana MD Meds Allergies and Home Medications Allergies Allergy/AdvReac Type Severity Reaction Status Date / Time rosuvastatin AdvReac Mild myalgias Verified 03/17/25 10:42 oxybutynin AdvReac Agitation, Verified 03/17/25 10:42 made me ugly solifenacin (From [facility]) AdvReac mental Verified 03/17/25 10:42 status change Home Medication ?Medication ?Instructions ?Recorded clonazepam 0.5 mg tablet 0.5 mg PO BID 12/10/13 fluoxetine 20 mg capsule 60 mg PO DAILY 11/26/20 lisinopril 10 mg tablet 40 mg PO DAILY 06/13/21 tamsulosin 0.4 mg capsule See Rx Instructions .Route 1 07/08/21 .COMPLEX #180 caps fesoterodine 4 mg tablet,extended 4 mg PO DAILY #30 ta bs 01/21/25 release 24 hr (Toviaz) omeprazole 20 mg capsule,delayed 40 mg PO BID 02/16/25 release (Prilosec) atorvastatin 40 mg tablet 40 mg PO DAILY 03/13/25 Current Visit Medications: Current Medications Generic Name Dose Route Start Last Admin Trade Name Freq PRN Reason Stop Dose Admin Ringer's Solution 1,000 mls @ 80 mls/hr 03/17/25 06:00 03/17/25 10:55 IV 04/15/25 23:59 80 mls/hr INFUSION KELLEN Administration IV Miscellaneous Supplies 1 each 03/17/25 06:00 Iv Access IV 04/15/25 23:59 DIRECTED KELLEN Sodium Chloride 0 ml 03/17/25 06:00 Normal Saline Flush 10 Ml Syr IV 04/15/25 23:59 PRN PRN Sodium Chloride 0 ml 03/17/25 06:00 Normal Saline 10 Ml Vial IJ 04/15/25 23:59 DIRECTED PRN Sterile Water 0 ml 03/17/25 06:00 Water,Injection,Sterile 10 Ml Vial IJ 04/15/25 23:59 DIRECTED PRN PFSH Active Problems Active Problems: Problem Status Onset Code Family history of prostate cancer Acute Z80.42 OAB (overactive bladder) Acute N32.81 Colon polyp, hyperplastic Acute ~01/2020 K63.5 Diverticulosis Acute K57.90 Colon polyps Acute K63.5 Encounter for screening colonoscopy Acute Z12.11 Family history of abdominal aortic aneurysm (AAA) Acute Z82.49 BPH (benign prostatic hyperplasia) Chronic N40.0 Hiatal hernia Chronic K44.9 Lumbosacral disc herniation Acute M51.27 IBS (irritable bowel syndrome) Chronic K58.9 Anxiety and depression Chronic F41.9, F32.9 GERD (gastroesophageal reflux disease) Chronic K21.9 Hyperlipidemia Acute E78.5 Hypertension Chronic I10 Left knee pain Acute M25.562 Medical History Medical History Nocturia Surgical History Surgical History Hx of eye surgery laceration of R eye and was put out for it Hx of colonoscopy Hx of esophagogastroduodenoscopy Tobacco Smoking/Tobacco Use Status: Former Tobacco Use Alcohol Alcohol Intake: current Alcohol intake frequency: holidays/special occasions only Substance Use Substance use: Never Substance use type: does not use Details: alcohol: t-4, few beers Vital Signs and Lab Results Vital Signs Most Recent Vital Signs in EMR: Most Recent Vital Signs Temp Pulse Resp BP Pulse Ox 36.0 C L 60 16 137/89 97 03/17/25 10:47 03/17/25 10:47 03/17/25 10:47 03/17/25 10:47 03/17/25 10:47 Imaging and Studies Imaging and Studies Study information below may be from another EMR and interpreted by another provider. Please see original notes in EMR for more complete details. EKG Summary: 01/25/25 Conclusion Sinus rhythm, rate 72 No interval abnormalities No STEMI Q wave lead III, no priors available for comparison Borderline ST depression <1mm lateral leads Stress Test Summary: 02/19/25 MPI Conclusion Myocardial perfusion is normal. There is no ischemia or evidence of prior infarction Calculated EF is 50%. Visually it appears greater than 60% with normal wall motion Echocardiogram Summary: 11/27/16 Summary: 1. Left ventricle: The cavity size was normal. Wall thickness was increased in a pattern of mild LVH. Systolic function was normal. The estimated ejection fraction was 60-65%. There was an increased relative contribution of atrial contraction to ventricular filling. The tissue Doppler parameters were abnormal. Findings consistent with diastolic dysfunction. There was no evidence of elevated ventricular filling pressure by Doppler parameters. 2. Mitral valve: There was mild regurgitation. 3. Left atrium: The atrium was mildly dilated. 4. Right ventricle: The cavity size was normal. Wall thickness was normal. Systolic function was normal. 5. Right atrium: The atrium was mildly dilated. 6. Atrial septum: No defect or patent foramen ovale was identified. 7. Pulmonary arteries: Pulmonary systolic pressure was in the range of 20mm Hg to 30mm Hg. 8. Inferior vena cava: The vessel was normal in size. The respirophasic diameter changes were in the normal range (greater than or equal to 50%), consistent with normal central venous pressure. Anesthesia Assessment and Plan Anesthesia History Personal History: No History of Anesthesia Complications Family History: No Family History of Anesthesia Complications Exercise Tolerance Exercise Tolerance: Metabolic Equivalents>4 Pertinent Negatives Pertinent Negatives: No Major Cardiovascular Symptoms or Complaints and No Major Pulmonary Symptoms or Complaints Cardiac & Pulmonary Exam Cardiac Exam: Normal S1/S2 Heart Sounds Pulmonary Exam: Clear Bilateral Breath Sounds and No cough or Cold Implantable Cardiac Device Does patient have a Pacemaker or an ICD?: No Airway Exam Known Difficult Airway: No Mallampati Class: 3 Mouth Opening: Normal (> 3cm) Thyromental Distance: Greater than 3 cm Neck Range of Motion: Full ROM Neck Circumference: Normal Teeth Condition: Normal Dentition ASA Classification ASA Score: ASA 2 Emergency Case?: No NPO Status NPO Status: NPO Clears >2 hours, Solids >8 hours Anesthesia Plan Resuscitation Status: Full Code Anesthesia Technique: General Anesthesia Airway Planned: Natural Airway Monitors Used: Standard Monitors
[2025-03-17 11:02] VITALS: BMI 31.7
--- NOTE | 2025-03-17 11:46 | STOM_PTH ---
PATIENT: Harris Quiroz LOC: [facility] U#:[id number] AGE/SX: 54/M ROOM: RE03/17/[address]: Ezra Quintana MD : 1970 BED: DIS: 03/17/2025 SPEC #: [id number] RECD: 03/17/25 12:40 STATUS: WAQAS RE #: [id number] EMMANUEL: 03/17/25 11:[address]: Ezra Quintana DEPT: Surgical Specimen RECD BY: Inez Miguel ENTERED: 03/17/25 12:42 SP TYPE: STOMACH OTHR DR: Mojgan Thompson Tissues: 1 - STOMACH BIOPSY 2 - STOMACH BIOPSY 3 - STOMACH BIOPSY 4 - ESOPHAGUS BIOPSY Procedures: GROSS AND MICRO LEVEL 4 IMMUNOPEROXIDASE STAIN Comments: [id number]
[2025-03-17 11:54] VITALS: BP 116/82; PULSE 55; RESP 16; TEMP 36.5; O2SAT 93
--- NOTE | 2025-03-17 12:13 | W.ANESPOSTOP ---
Postoperative Evaluation Date, Time and Location Date Performed: 03/17/25 Time Performed: 12:09 Patient Location: Day Surgery Unit Vital Signs Most Recent Imported Vital Signs: Most Recent Vital Signs Temp Pulse Resp BP Pulse Ox 36.5 C 55 L 16 116/82 93 03/17/25 11:54 03/17/25 11:54 03/17/25 11:54 03/17/25 11:54 03/17/25 11:54 Pain Score Most Recent Pain Score: Most Recent Pain Score Pain Level 0 03/17/25 11:54 Assessment Mental Status: Awake (Alert & Oriented to Patient Baseline) Airway and Respiratory Function: Patent airway with normal (patient baseline) respiratory exam Cardiovascular Function: Hemodynamically Stable Hydration Status: Adequately Hydrated Nausea & Vomiting: No Nausea or Vomiting Pain: Pt. Denies Any Pain Peripheral Nerve Block: Patient did not receive a nerve block
[2025-03-17 12:28] VITALS: BP 129/79; PULSE 52; RESP 16; TEMP 36.3; O2SAT 96
== END 2025-03-17 12:42 | disposition home or self-care (01) ==
LOC: SUR 10:23
PROVIDERS: PCP Family Medicine; Visit Provider Surgery
PROC: 0DJ68ZZ Inspection of Stomach, Via Natural or Artificial Opening Endoscopic (ICD-10-PCS; CPT 43235; principal; 2025-03-17 10:45)
DX: K21.9 Gastro-esophageal reflux disease without esophagitis (principal); K44.9 Diaphragmatic hernia without obstruction or gangrene; K31.7 Polyp of stomach and duodenum; K29.70 Gastritis, unspecified, without bleeding
CPT/HCPCS: 43239; 88305; 88361; J2704